=== PATIENT | female | born 1970 | race Caucasian/White ===

== ENCOUNTER → 2016-09-08 | Outpatient (CLI) | payer OTHER ==
--- NOTE | 2016-09-13 07:51 | MM ---
Reason for exam: screening (asymptomatic). Physical Findings: A clinical breast exam by your physician is recommended on an annual basis and results should be correlated with mammographic findings. MG Screening Mammo w CAD Bilateral CC and MLO view(s) were taken. No prior studies available for comparison. The breast tissue is heterogeneously dense. This may lower the sensitivity of mammography. There is no discrete abnormality. ASSESSMENT: Negative, BI-RAD 1 RECOMMENDATION: Routine screening mammogram of both breasts in 1 year.
== END | disposition home or self-care (01) ==
LOC: RADMAMWWP 15:49
PROVIDERS: ATTEND Family Medicine
DX: Z12.31 Encounter for screening mammogram for malignant neoplasm of breast (principal)

== ENCOUNTER → 2017-12-26 | Outpatient (CLI) | payer OTHER ==
--- NOTE | 2017-12-27 14:37 | MM ---
Reason for exam: screening (asymptomatic). Last mammogram was performed 1 year and 4 months ago. Physical Findings: A clinical breast exam by your physician is recommended on an annual basis and results should be correlated with mammographic findings. MG Screening Mammo w CAD Bilateral CC and MLO view(s) were taken. Prior study comparison: September 08, 2016, bilateral MG screening mammo w CAD. The breast tissue is heterogeneously dense. This may lower the sensitivity of mammography. No significant changes when compared with prior studies. ASSESSMENT: Negative, BI-RAD 1 RECOMMENDATION: Routine screening mammogram of both breasts in 1 year.
== END | disposition home or self-care (01) ==
LOC: RADMAMWWP 15:24
PROVIDERS: ATTEND Family Medicine
DX: Z12.31 Encounter for screening mammogram for malignant neoplasm of breast (principal)
CPT/HCPCS: 77067

== ENCOUNTER 2024-04-04 00:25 | Emergency (ER) | payer OTHER ==
[2024-04-04 00:32] VITALS: RESP 18
--- NOTE | 2024-04-04 00:33 | ED ---
Abdominal Pain HPI - General Stated Complaint: Abd pain Time Seen by Provider: 04/04/24 00:30 Source: patient, RN notes reviewed Mode of arrival: ambulatory Limitations: no limitations - History of Present Illness Initial Comments: Patient is a 54 year old female presenting with abdominal pain x 10 hours. She states that the pain is a 10/10 and is "all over". She states that she has not been able to eat or drink today due to the pain. She states that she has been vomiting up "stomach acid". She endorses chills and hot flashes. She denies any hematemesis, diarrhea, shortness of breath. She states that she does not drink alcohol. She states she has not had symptoms yesterday. Patient denies any chest pain or shortness of breath no flank pain. - Related Data Home Medications Medication Instructions Recorded Confirmed Albuterol Sulfate [Albuterol 2 puff PO RT-Q4H PRN 04/05/24 04/05/24 Sulfate Hfa] Cetirizine HCl [Zyrtec] 10 mg PO DAILY 04/05/24 04/05/24 Ergocalciferol (Vitamin D2) 1,250 mcg PO Q7D 04/05/24 04/05/24 [Drisdol (50,000 Iu)] Previous Rx's Medication Instructions Recorded Ondansetron Odt [Zofran Odt] 4 mg PO Q8HR PRN #10 tab 04/04/24 Allergies Allergy/AdvReac Type Severity Reaction Status Date / Time meclizine HCl [From Antivert] Allergy Rash/Hives Verified 04/05/24 10:08 cephalexin [From Keflex] AdvReac "Upset Verified 04/05/24 10:08 stomach" Review of Systems ROS Statement: Those systems with pertinent positive or pertinent negative responses have been documented in the HPI. ROS Other: All systems not noted in ROS Statement are negative. Past Medical History Past Medical History: No Reported History History of Any Multi-Drug Resistant Organisms: None Reported Past Surgical History: Section Additional Past Surgical History / Comment(s): 1996 Past Anesthesia/Blood Transfusion Reactions: No Reported Reaction Past Psychological History: No Psychological Hx Reported Past Alcohol Use History: None Reported Past Drug Use History: None Reported - Past Family History Daughter(s) Family Medical History: Diabetes Mellitus General Exam General appearance: alert, in distress Respiratory exam: Present: normal lung sounds bilaterally. Absent: respiratory distress, wheezes, rales, rhonchi, stridor Cardiovascular Exam: Present: regular rate, normal rhythm, normal heart sounds. Absent: systolic murmur, diastolic murmur, rubs, gallop, clicks GI/Abdominal exam: Present: tenderness (diffuse), guarding Neurological exam: Present: alert, oriented X3, CN II-XII intact Psychiatric exam: Present: anxious Skin exam: Present: warm, dry, intact, normal color, diaphoretic. Absent: rash Course Vital Signs 04/04/24 04/04/24 04/04/24 00:26 02:07 03:56 Temperature 97.8 F 98.2 F Pulse Rate 78 74 75 Respiratory 18 18 18 Rate Blood Pressure 127/90 111/66 106/69 O2 Sat by Pulse 100 99 99 Oximetry Medical Decision Making - Medical Decision Making Was pt. sent in by a medical professional or institution (, PA, PREDATORY ANIMAL EXTERMINATOR, urgent care, hospital, or skilled nursing...) When possible be specific @ -[No] Did you speak to anyone other than the patient for history (EMS, parent, family, police, friend...)? What history was obtained from this source @ -[No] Did you review nursing and triage notes (agree or disagree)? Why? @ -[I reviewed and agree with nursing and triage notes] Were old charts reviewed (outside hosp., previous admission, EMS record, old EKG, old radiological studies, urgent care reports/EKG's, skilled nursing records)? Report findings @ -[No old charts were reviewed] Differential Diagnosis (chest pain, altered mental status, abdominal pain women, abdominal pain men, vaginal bleeding, weakness, fever, dyspnea, syncope, headache, dizziness, GI bleed, back pain, seizure, CVA, palpatations, mental health, musculoskeletal)? @ - differential Abdominal Pain Women: Appendicitis, Cholecystitis, diverticulosis, ischemic bowel, pancreatitis, hepatitis, UTI, gastroenteritis, AAA, incarcerated hernia, bowel obstruction, constipation, inflammatory bowel, hepatitis, peptic ulcer disease, splenic infarction, perforated viscus, vulvitis, ovarian torsion, PID, kidney stone, placenta abruption, this is not meant to be an all-inclusive list EKG interpreted by me (3pts min.). @ -[As above] X-rays interpreted by me (1pt min.). @ -[None done] CT interpreted by me (1pt min.). @ -[None done] U/S interpreted by me (1pt. min.). @ -[None done] What testing was considered but not performed or refused? (CT, X-rays, U/S, labs)? Why? @ -[None] What meds were considered but not given or refused? Why? @ -[None] Did you discuss the management of the patient with other professionals (professionals i.e. , PA, PREDATORY ANIMAL EXTERMINATOR, lab, RT, psych nurse, manager social media, fuel system maintenance worker, t eacher, corporation officer, case management assistant)? Give summary @ -[No] Was smoking cessation discussed for >3mins.? @ -[No] Was critical care preformed (if so, how long)? @ -[No] Were there social determinants of health that impacted care today? How? (Homelessness, low income, unemployed, alcoholism, drug addiction, transportation, low edu. Level, literacy, decrease access to med. care, [facility], rehab)? @ -[No] Was there de-escalation of care discussed even if they declined (Discuss DNR or withdrawal of care, Hospice)? DNR status @ -[No] What co-morbidities impacted this encounter? (DM, HTN, Smoking, COPD, CAD, Cancer, CVA, ARF, Chemo, Hep., AIDS, mental health diagnosis, sleep apnea, morbid obesity)? @ -[None] Was patient admitted / discharged? Hospital course, mention meds given and route, prescriptions, significant lab abnormalities, going to OR and other pertinent info. @ -Discharge laboratory studies reviewed patient has evidence of urinary tract infection. Patient felt improved with IV fluids and antiemetics will be discharged on antibiotics and antiemetics. Return parameters jose luis. Patient in no flank pain afebrile. Undiagnosed new problem with uncertain prognosis? @ -[No] Drug Therapy requiring intensive monitoring for toxicity (Heparin, Nitro, Insulin, Cardizem)? @ -[No] Were any procedures done? @ -[No] Diagnosis/symptom? @ -UTI nausea vomiting Acute, or Chronic, or Acute on Chronic? @ -Acute Uncomplicated (without systemic symptoms) or Complicated (systemic symptoms)? @ -Complicated Side effects of treatment? @ -[No] Exacerbation, Progression, or Severe Exacerbation? @ -[No] Poses a threat to life or bodily function? How? (Chest pain, [place], [place], pneumonia, PE, COPD, DKA, ARF, appy, cholecystitis, CVA, Diverticulitis, Homicidal, Suicidal, threat to staff... and all critical care pts) @ -[No] - Lab Data Result diagrams: 04/04/24 00:40 04/04/24 00:40 Lab Results 04/04/24 04/04/24 04/04/24 Range/Units 00:40 00:40 00:40 WBC 9.5 (3.8-10.6) k/uL RBC 5.13 (3.80-5.40) m/uL Hgb 14.7 (11.4-16.0) gm/dL Hct 44.9 (34.0-46.0) % MCV 87.4 (80.0-100.0) fL MCH 28.7 (25.0-35.0) pg MCHC 32.8 (31.0-37.0) g/dL RDW 12.8 (11.5-15.5) % Plt Count 175 (150-450) k/uL MPV 8.3 Neutrophils % 87 % Lymphocytes % 8 % Monocytes % 4 % Eosinophils % 0 % Basophils % 0 % Neutrophils # 8.3 H (1.3-7.7) k/uL Lymphocytes # 0.8 L (1.0-4.8) k/uL Monocytes # 0.4 (0-1.0) k/uL Eosinophils # 0.0 (0-0.7) k/uL Basophils # 0.0 (0-0.2) k/uL Sodium 142 (137-145) mmol/L Potassium 4.0 (3.5-5.1) mmol/L Chloride 103 (98-107) mmol/L Carbon Dioxide 26 (22-30) mmol/L Anion Gap 13 mmol/L BUN 19 H (7-17) mg/dL Creatinine 0.76 (0.52-1.04) mg/dL Est GFR (CKD-EPI)AfAm >90 (>60 ml/min/1.73 sqM) Est GFR (CKD-EPI)NonAf >90 (>60 ml/min/1.73 sqM) Glucose 151 H (74-99) mg/dL Plasma Lactic Acid Seymour 1.7 (0.7-2.0) mmol/L Calcium 10.4 H (8.4-10.2) mg/dL Total Bilirubin 0.9 (0.2-1.3) mg/dL AST 25 (14-36) U/L ALT 16 (4-34) U/L Alkaline Phosphatase 78 (38-126) U/L Total Protein 8.8 H (6.3-8.2) g/dL Albumin 5.3 H (3.5-5.0) g/dL Lipase 149 (23-300) U/L Urine Color Urine Appearance (Clear) Urine pH (5.0-8.0) Ur Specific [place] (1.001-1.035) Urine Protein (Negative) Urine Glucose (UA) (Negative) Urine Ketones (Negative) Urine Blood (Negative) Urine Nitrite (Negative) Urine Bilirubin (Negative) Urine Urobilinogen (<2.0) mg/dL Ur Leukocyte Esterase (Negative) Urine RBC (0-5) /hpf Urine WBC (0-5) /hpf Urine WBC Clumps (None) /hpf Ur Squamous Epith Cells (0-4) /hpf Urine Mucus (None) /hpf Urine Yeast (Budding) (None) /hpf 04/04/24 Range/Units 02:20 WBC (3.8-10.6) k/uL RBC (3.80-5.40) m/uL Hgb (11.4-16.0) gm/dL Hct (34.0-46.0) % MCV (80.0-100.0) fL MCH (25.0-35.0) pg MCHC (31.0-37.0) g/dL RDW (11.5-15.5) % Plt Count (150-450) k/uL MPV Neutrophils % % Lymphocytes % % Monocytes % % Eosinophils % % Basophils % % Neutrophils # (1.3-7.7) k/uL Lymphocytes # (1.0-4.8) k/uL Monocytes # (0-1.0) k/uL Eosinophils # (0-0.7) k/uL Basophils # (0-0.2) k/uL Sodium (137-145) mmol/L Potassium (3.5-5.1) mmol/L Chloride (98-107) mmol/L Carbon Dioxide (22-30) mmol/L Anion Gap mmol/L BUN (7-17) mg/dL Creatinine (0.52-1.04) mg/dL Est GFR (CKD-EPI)AfAm (>60 ml/min/1.73 sqM) Est GFR (CKD-EPI)NonAf (>60 ml/min/1.73 sqM) Glucose (74-99) mg/dL Plasma Lactic Acid Seymour (0.7-2.0) mmol/L Calcium (8.4-10.2) mg/dL Total Bilirubin (0.2-1.3) mg/dL AST (14-36) U/L ALT (4-34) U/L Alkaline Phosphatase (38-126) U/L Total Protein (6.3-8.2) g/dL Albumin (3.5-5.0) g/dL Lipase (23-300) U/L Urine Color Yellow Urine Appearance Cloudy H (Clear) Urine pH 8.5 H (5.0-8.0) Ur Specific [place] 1.028 (1.001-1.035) Urine Protein 2+ H (Negative) Urine Glucose (UA) Negative (Negative) Urine Ketones 4+ H (Negative) Urine Blood Trace H (Negative) Urine Nitrite Negative (Negative) Urine Bilirubin Negative (Negative) Urine Urobilinogen 2.0 (<2.0) mg/dL Ur Leukocyte Esterase Large H (Negative) Urine RBC 32 H (0-5) /hpf Urine WBC 165 H (0-5) /hpf Urine WBC Clumps Rare H (None) /hpf Ur Squamous Epith Cells 1 (0-4) /hpf Urine Mucus Moderate H (None) /hpf Urine Yeast (Budding) Occasional H (None) /hpf - EKG Data -: EKG Interpreted by Me EKG Comments: EKG performed at 00: 40 sinus rhythm rate of 81 IN 125 QRS 93 QT/QTc 369/406 Disposition Clinical Impression: UTI (urinary tract infection), Dehydration, Nausea & vomiting Disposition: HOME SELF-CARE Condition: Stable Instructions (If sedation given, give patient instructions): Urinary Tract Infection in Women (ED) Additional Instructions: Please return to the Emergency Department if symptoms worsen or any other concerns. Prescriptions: Ondansetron Odt [Zofran Odt] 4 mg PO Q8HR PRN #10 tab PRN Reason: Nausea Is patient prescribed a controlled substance at d/c from ED?: No Referrals: Clifton Rios MD [STAFF PHYSICIAN] - 1-2 days Time of Disposition: 03:11
[2024-04-04] MEDS: SODIUM CHLORIDE 0.9% 1,000 ML IV STA (00:57)
[2024-04-04] MEDS: KETOROLAC 15 MG/ML 1 ML VIAL IVP STA (00:59)
[2024-04-04] MEDS: ONDANSETRON 4 MG/2 ML VIAL IVP STA (00:59)
[2024-04-04 01:06] LABS: Basophils % (A) 0 %; Eosinophils % (A) 0 %; HCT 44.9 % (34.0-46.0); HGB 14.7 gm/dL (11.4-16.0); Lymphocytes # (A) 0.8 k/uL (1.0-4.8); Lymphocytes % (A) 8 %; MCH 28.7 pg (25.0-35.0); MCHC 32.8 g/dL (31.0-37.0); MCV 87.4 fL (80.0-100.0); Mean Platelet Volume 8.3; Monocytes # (A) 0.4 k/uL (0-1.0); Monocytes % (A) 4 %; Neutrophils # (A) 8.3 k/uL (1.3-7.7); Neutrophils % (A) 87 %; Platelet Count 175 k/uL (150-450); RBC 5.13 m/uL (3.80-5.40); RDW 12.8 % (11.5-15.5); WBC 9.5 k/uL (3.8-10.6)
[2024-04-04] MEDS: diphenhydrAMINE 50 MG/ML 1 ML VIAL IVP STA (01:29)
[2024-04-04] MEDS: METOCLOPRAMIDE 5 MG/ML 2 ML VIAL IVP STA (01:29)
[2024-04-04 01:48] LABS: ALT 16 U/L (4-34); AST 25 U/L (14-36); African American GFR (CKD) >90 (>60 ml/min/1.73 sqM); Albumin 5.3 g/dL (3.5-5.0); Alkaline Phosphatase 78 U/L (38-126); Anion Gap 13 mmol/L; Blood Urea Nitrogen 19 mg/dL (7-17); Calcium 10.4 mg/dL (8.4-10.2); Carbon Dioxide 26 mmol/L (22-30); Chloride 103 mmol/L (98-107); Glucose 151 mg/dL (74-99); Lipase 149 U/L (23-300); Non-African American GFR(CKD) >90 (>60 ml/min/1.73 sqM); Sodium 142 mmol/L (137-145); Total Bilirubin 0.9 mg/dL (0.2-1.3); Total Protein 8.8 g/dL (6.3-8.2)
[2024-04-04 02:53] LABS: Appearance,Urine Cloudy (Clear); Bilirubin,Urine Negative (Negative); Blood,Urine Trace (Negative); Budding Yeast,Urine Occasional /hpf; Color,Urine Yellow; Glucose,Urine (UA) Negative (Negative); Ketones,Urine 4+ (Negative); Leukocyte Esterase,Urine Large (Negative); Mucus,Urine Moderate /hpf; Nitrite,Urine Negative (Negative); PH, Urine 8.5 (5.0-8.0); Protein,Urine 2+ (Negative); RBC,Urine 32 /hpf (0-5); Specific Gravity,Urine 1.028 (1.001-1.035); Squamous Epithelial Cell,Urine 1 /hpf (0-4); WBC,Urine 165 /hpf (0-5)
[2024-04-04] MEDS: SODIUM CHLORIDE 0.9% 1,000 ML IV ONE (03:30)
[2024-04-04 03:56] VITALS: BP 106/69; PULSE 75; TEMP 98.2
== END 2024-04-04 03:45 | disposition home or self-care (01) ==
LOC: EC 00:25
DX: N39.0 Urinary tract infection, site not specified (principal); E86.0 Dehydration; R11.2 Nausea with vomiting, unspecified; Z88.1 Allergy status to other antibiotic agents; Z88.8 Allergy status to other drugs, medicaments and biological substances
CPT/HCPCS: 36415; 93005; 80053; 83605; 83690; 85025; 81001; 99285; 96375; 96361; 96365; J1200; J2765; J2405; J0696; J1885

== ENCOUNTER 2024-04-05 05:49 | Inpatient (IN) | payer OTHER ==
[2024-04-05 06:16] LABS: Basophils % (A) 0 %; Eosinophils % (A) 1 %; HCT 42.1 % (34.0-46.0); HGB 13.6 gm/dL (11.4-16.0); Lymphocytes # (A) 0.9 k/uL (1.0-4.8); Lymphocytes % (A) 13 %; MCH 28.4 pg (25.0-35.0); MCHC 32.3 g/dL (31.0-37.0); MCV 87.9 fL (80.0-100.0); Mean Platelet Volume 8.2; Monocytes # (A) 0.3 k/uL (0-1.0); Monocytes % (A) 5 %; Neutrophils # (A) 5.6 k/uL (1.3-7.7); Neutrophils % (A) 81 %; Platelet Count 168 k/uL (150-450); RBC 4.79 m/uL (3.80-5.40); RDW 12.8 % (11.5-15.5)
[2024-04-05] MEDS: KETOROLAC 15 MG/ML 1 ML VIAL IVP STA (06:16)
[2024-04-05] MEDS: ONDANSETRON 4 MG/2 ML VIAL IVP STA (06:17)
[2024-04-05] MEDS: SODIUM CHLORIDE 0.9% 1,000 ML IV STA (06:18)
--- NOTE | 2024-04-05 06:18 | ED ---
Abdominal Pain HPI - General Chief Complaint: Abdominal Pain Stated Complaint: NV Time Seen by Provider: 04/05/24 05:57 Source: patient, EMS, RN notes reviewed Mode of arrival: EMS Limitations: no limitations - History of Present Illness Initial Comments: This is a 54-year-old female who presents to the emergency department for abdominal pain, nausea, and vomiting. Patient was evaluated here yesterday for the same symptoms, which had started about 10 hours prior. They were able to control her symptoms while she was here and she was diagnosed with a UTI. States that after going home the symptoms have returned and they have gotten progressively worse since then. The pain then woke her up around 3am today. States that the pain is throughout her whole abdomen, but may be worse in the lower portions. She has also had persistent nausea and vomiting. Because of that she has also been unable to keep down her antibiotics. Denies any history of similar pain in the past. Also denies any diarrhea or constipation. Her last bowel movement was yesterday. She is still passing gas. MD Complaint: abdominal pain - Related Data Home Medications Medication Instructions Recorded Confirmed Albuterol Sulfate [Albuterol 2 puff PO RT-Q4H PRN 04/05/24 04/05/24 Sulfate Hfa] Cetirizine HCl [Zyrtec] 10 mg PO DAILY 04/05/24 04/05/24 Ergocalciferol (Vitamin D2) 1,250 mcg PO Q7D 04/05/24 04/05/24 [Drisdol (50,000 Iu)] Previous Rx's Medication Instructions Recorded Ondansetron Odt [Zofran Odt] 4 mg PO Q8HR PRN #10 tab 04/04/24 Allergies Allergy/AdvReac Type Severity Reaction Status Date / Time meclizine HCl [From Antivert] Allergy Rash/Hives Verified 04/05/24 10:08 cephalexin [From Keflex] AdvReac "Upset Verified 04/05/24 10:08 stomach" Review of Systems ROS Statement: Those systems with pertinent positive or pertinent negative responses have been documented in the HPI. ROS Other: All systems not noted in ROS Statement are negative. Past Medical History Past Medical History: No Reported History History of Any Multi-Drug Resistant Organisms: None Reported Past Surgical History: Section Additional Past Surgical History / Comment(s): 1996 Past Anesthesia/Blood Transfusion Reactions: No Reported Reaction Past Psychological History: No Psychological Hx Reported Past Alcohol Use History: None Reported Past Drug Use History: None Reported - Past Family History Daughter(s) Family Medical History: Diabetes Mellitus General Exam Limitations: no limitations General appearance: alert, in distress Head exam: Present: atraumatic, normocephalic, normal inspection Respiratory exam: Present: normal lung sounds bilaterally. Absent: respiratory distress, wheezes, rales, rhonchi, stridor Cardiovascular Exam: Present: regular rate, normal rhythm, normal heart sounds. Absent: systolic murmur, diastolic murmur, rubs, gallop, clicks GI/Abdominal exam: Present: soft, tenderness (RLQ and LLQ), normal bowel sounds. Absent: distended Neurological exam: Present: alert, oriented X3, CN II-XII intact Psychiatric exam: Present: normal affect, normal mood Skin exam: Present: warm, dry, intact, normal color. Absent: rash Course Vital Signs 04/05/24 04/05/24 04/05/24 05:51 07:44 08:42 Temperature 98.0 F Pulse Rate 98 86 89 Respiratory 20 20 20 Rate Blood Pressure 126/86 113/69 133/86 O2 Sat by Pulse 100 97 94 L Oximetry 04/05/24 04/05/24 04/05/24 10:00 12:21 16:00 Temperature 97.9 F Pulse Rate 83 73 74 Respiratory 20 18 16 Rate Blood Pressure 114/78 119/87 111/70 O2 Sat by Pulse 96 99 97 Oximetry 04/05/24 17:18 Temperature 98.0 F Pulse Rate 71 Respiratory 16 Rate Blood Pressure 123/80 O2 Sat by Pulse 97 Oximetry Medical Decision Making - Medical Decision Making This is a 54 year old female who presents to the emergency department for abdominal pain, nausea, and vomiting. Was pt. sent in by a medical professional or institution? @ -No Did you speak to anyone other than the patient for history? @ -No Did you review nursing and triage notes? @ -Yes, and I agree, it is accurate with regards to the patient's symptoms. Were old charts reviewed? @ -No Differential Diagnosis? @ -Differential Abdominal Pain Women: Appendicitis, Cholecystitis, diverticulosis, ischemic bowel, pancreatitis, hepatitis, UTI, gastroenteritis, AAA, incarcerated hernia, bowel obstruction, constipation, inflammatory bowel, hepatitis, peptic ulcer disease, splenic infarction, perforated viscus, vulvitis, ovarian torsion, PID, kidney stone, placenta abruption, this is not meant to be an all-inclusive list EKG interpreted by me (3pts min.)? @ -EKG interpreted by me demonstrating the following: Sinus rhythm. Ventricular rate 82 bpm, VT interval 123 ms, QRS duration 86 ms, QTc 396 ms. X-rays interpreted by me (1pt min.)? @ -Chest x-ray obtained. My interpretation identifies successful placement of the NG tube. CT interpreted by me (1pt min.)? @ -CT scan of the abdomen and pelvis obtained. My interpretation identifies di lated fluid-filled small bowel loops. U/S interpreted by me (1pt. min.)? @ -Not obtained What testing was considered but not performed? (CT, X-rays, U/S, labs)? Why? @ -None What meds were considered but not given? Why? @ -None Did you discuss the management of the patient with other professionals? @ -Yes, Dr. Peguero, general surgery, who advised admission with IV antibiotics. Did you reconcile home meds? @ -Yes Was smoking cessation discussed for >3mins.? @ -No Was critical care preformed (if so, how long)? @ -No Were there social determinants of health that impacted care today? How? (Homelessness, low income, unemployed, alcoholism, drug addiction, transportation, low edu. Level, literacy, decrease access to med. care, penitentiary, rehab)? @ -No Was there de-escalation of care discussed even if they declined? (Discuss DNR or withdrawal of care, Hospice)? @ -No What co-morbidities impacted this encounter? (DM, HTN, Smoking, COPD, CAD, Cancer, CVA, Hep., AIDS, mental health diagnosis, sleep apnea, morbid obesity)? @ -None Was patient admitted / discharged? @ -Admitted. Lab work unremarkable. CT scan of the abdomen and pelvis demonstrates findings highly suggestive of small bowel obstruction based on d ilated fluid-filled small bowel loops measuring up to 3.4 cm. However, discrete transition point is difficult to identify. This is possibly in the left lower quadrant. They also advised correlation for concurrent infectious or inflammatory colitis with moderate inflammation. She also has mesenteric edema and mild abdominopelvic ascites likely reactive to these changes. NG tube was placed and hooked up to intermittent low wall suction. Chest x-ray verified placement of the NG tube as well. Case discussed with Dr. Peguero, general surgery. He advised IV antibiotics with Zosyn and Flagyl. These were subsequently initiated. She was also started on maintenance IV fluids and kept NPO. Medicine consulted for medical management. Case discussed with ED attending Dr. Green. Undiagnosed new problem with uncertain prognosis? @ -None Drug Therapy requiring intensive monitoring for toxicity (Heparin, Nitro, Insulin, Cardizem)? @ -None Were any procedures done? @ -None Diagnosis/symptom? @ -Small bowel obstruction, colitis Acute, or Chronic, or Acute on Chronic? @ -Acute Uncomplicated (without systemic symptoms) or Complicated (systemic symptoms)? @ -Complicated Side effects of treatment? @ -None Exacerbation, Progression, or Severe Exacerbation] @ -Not applicable Poses a threat to life or bodily function? @ -Yes, can lead to life-threatening infection. - Lab Data Result diagrams: 04/08/24 04:22 04/08/24 04:22 Lab Results 04/05/24 04/05/24 04/05/24 Range/Units 05:53 05:53 05:53 WBC 7.0 (3.8-10.6) k/uL RBC 4.79 (3.80-5.40) m/uL Hgb 13.6 (11.4-16.0) gm/dL Hct 42.1 (34.0-46.0) % MCV 87.9 (80.0-100.0) fL MCH 28.4 (25.0-35.0) pg MCHC 32.3 (31.0-37.0) g/dL RDW 12.8 (11.5-15.5) % Plt Count 168 (150-450) k/uL MPV 8.2 Neutrophils % 81 % Lymphocytes % 13 % Monocytes % 5 % Eosinophils % 1 % Basophils % 0 % Neutrophils # 5.6 (1.3-7.7) k/uL Lymphocytes # 0.9 L (1.0-4.8) k/uL Monocytes # 0.3 (0-1.0) k/uL Eosinophils # 0.0 (0-0.7) k/uL Basophils # 0.0 (0-0.2) k/uL ESR (0-30) mm/Hr Sodium 145 (137-145) mmol/L Potassium 3.9 (3.5-5.1) mmol/L Chloride 107 (98-107) mmol/L Carbon Dioxide 27 (22-30) mmol/L Anion Gap 11 mmol/L BUN 15 (7-17) mg/dL Creatinine 0.77 (0.52-1.04) mg/dL Est GFR (CKD-EPI)AfAm >90 (>60 ml/min/1.73 sqM) Est GFR (CKD-EPI)NonAf 88 (>60 ml/min/1.73 sqM) Glucose 135 H (74-99) mg/dL Plasma Lactic Acid Seymour 1.1 (0.7-2.0) mmol/L Calcium 9.5 (8.4-10.2) mg/dL Total Bilirubin 0.7 (0.2-1.3) mg/dL AST 21 (14-36) U/L ALT 13 (4-34) U/L Alkaline Phosphatase 57 (38-126) U/L C-Reactive Protein (<1.0) mg/dL Total Protein 7.4 (6.3-8.2) g/dL Albumin 4.6 (3.5-5.0) g/dL Amylase 51 (30-110) U/L Lipase 119 (23-300) U/L 04/05/24 04/05/24 Range/Units 05:53 05:53 WBC (3.8-10.6) k/uL RBC (3.80-5.40) m/uL Hgb (11.4-16.0) gm/dL Hct (34.0-46.0) % MCV (80.0-100.0) fL MCH (25.0-35.0) pg MCHC (31.0-37.0) g/dL RDW (11.5-15.5) % Plt Count (150-450) k/uL MPV Neutrophils % % Lymphocytes % % Monocytes % % Eosinophils % % Basophils % % Neutrophils # (1.3-7.7) k/uL Lymphocytes # (1.0-4.8) k/uL Monocytes # (0-1.0) k/uL Eosinophils # (0-0.7) k/uL Basophils # (0-0.2) k/uL ESR 21 (0-30) mm/Hr Sodium (137-145) mmol/L Potassium (3.5-5.1) mmol/L Chloride (98-107) mmol/L Carbon Dioxide (22-30) mmol/L Anion Gap mmol/L BUN (7-17) mg/dL Creatinine (0.52-1.04) mg/dL Est GFR (CKD-EPI)AfAm (>60 ml/min/1.73 sqM) Est GFR (CKD-EPI)NonAf (>60 ml/min/1.73 sqM) Glucose (74-99) mg/dL Plasma Lactic Acid Seym[place] (0.7-2.0) mmol/L Calcium (8.4-10.2) mg/dL Total Bilirubin (0.2-1.3) mg/dL AST (14-36) U/L ALT (4-34) U/L Alkaline Phosphatase (38-126) U/L C-Reactive Protein <0.5 (<1.0) mg/dL Total Protein (6.3-8.2) g/dL Albumin (3.5-5.0) g/dL Amylase (30-110) U/L Lipase (23-300) U/L - Radiology Data Radiology results: report reviewed, image reviewed Disposition Clinical Impression: Small bowel obstruction, Colitis Disposition: ADMITTED IP TO THIS HOSP
[2024-04-05] MEDS: MORPHINE SULFATE 4 MG/ML SYRINGE IVP STA (06:19)
[2024-04-05 06:21] LABS: ALT 13 U/L (4-34); AST 21 U/L (14-36); African American GFR (CKD) >90 (>60 ml/min/1.73 sqM); Albumin 4.6 g/dL (3.5-5.0); Alkaline Phosphatase 57 U/L (38-126); Amylase 51 U/L (30-110); Anion Gap 11 mmol/L; Blood Urea Nitrogen 15 mg/dL (7-17); Calcium 9.5 mg/dL (8.4-10.2); Carbon Dioxide 27 mmol/L (22-30); Chloride 107 mmol/L (98-107); Glucose 135 mg/dL (74-99); Lipase 119 U/L (23-300); Non-African American GFR(CKD) 88 (>60 ml/min/1.73 sqM); Potassium 3.9 mmol/L (3.5-5.1); Sodium 145 mmol/L (137-145); Total Bilirubin 0.7 mg/dL (0.2-1.3); Total Protein 7.4 g/dL (6.3-8.2)
[2024-04-05] MEDS: PANTOPRAZOLE 40 MG/10 ML VIAL IVP STA (06:21)
[2024-04-05] MEDS: HYDROmorphone 1 MG/ML 1 ML SYRINGE IVP STA (06:52)
[2024-04-05] MEDS: DICYCLOMINE 10 MG/ML 2 ML AMP IM STA (06:59)
--- NOTE | 2024-04-05 07:38 | CT ---
EXAMINATION TYPE: CT abdomen pelvis w con DATE OF EXAM: 04/05/2024 6:49 AM COMPARISON: None. CLINICAL INDICATION: Female, 54 years old with history of Lower abdominal pain, pain and nausea, TECHNIQUE: Contiguous axial scanning of the abdomen and pelvis following administration of 100 ml Iso rebecca 300 IV contrast. Delayed images through the kidneys and coronal/sagittal reconstructions perform ed. CT DLP: 569.2 mGycm, Automated exposure control for dose reduction was used. FINDINGS: The heart is normal size without pericardial effusion. Lung bases clear without pleural effusion. There is trace perihepatic ascites and mild to moderate pelvic ascites fluid. Scattered mesenteric ed melvin. There is collapse of distal small bowel loops. Most of the colon is collapsed. Colon shows mild to moderate circumferential wall thickening especially at the hepatic flexure where there is mild per icolonic fat stranding as well, axial image [id number]. Dilated loop filled small bowel loops measuring up to 3.4 cm in caliber. Overall findings favor small bowel obstruction though the discrete transition point is difficult to clearly identify, possibly on coronal image 26 in the left lower quadrant. Scattered nonenlarged and borderline sized mesenteric lymph nodes. Incidental 1.4 cm hemangioma posterior right hepatic dome. Otherwise, no focal liver lesion. Portal v enous system is patent. No biliary ductal dilatation. 1.1 cm gallstone. Junctional fold in the gallbl adder. No free air. Adrenal glands, left kidney, spleen, and pancreas within normal limits. 4 mm nonobstructing right bisi al stone and extrarenal pelvis right kidney. Bladder under distended. Uterus anteverted with IUD demonstrated. Both ovaries are visualized. No pel tammi adenopathy seen. Bones: Moderate to severe degenerative disc disease L5-S1. Hypertrophic facet arthropathy lower lumba r spine. Combination of disc bulge and ligamentum flavum thickening at L4-L5 may contribute to severe focal spinal canal stenosis. IMPRESSION: 1. FINDINGS HIGHLY SUGGESTIVE OF SMALL BOWEL OBSTRUCTION, TRANSITION POINT NOT CLEARLY SEEN, POSSIBLY LEFT LOWER QUADRANT, CORONAL IMAGE 26. SMALL BOWEL LOOPS DILATED UP TO 3.4 CM. 2. CORRELATE FOR A CONCURRENT INFECTIOUS OR INFLAMMATORY COLITIS WITH MODERATE INFLAMMATION. 3. MESENTERIC EDEMA AND MILD ABDOMINOPELVIC ASCITES LIKELY REACTIVE TO THESE CHANGES. 4. INCIDENTAL 4 MM NONOBSTRUCTIVE RENAL STONE AND A 1.1 CM GALLSTONE. IUD NOTED. [facility], Workstation: Photos [id number], 04/05/2024 7:36 AM
[2024-04-05] MEDS ORDERED: NALOXONE 0.4 MG/ML 1 ML VIAL IV PRN (08:01)
[2024-04-05] MEDS: LORazepam 2 MG/ML INJ IV STA (08:27)
[2024-04-05] MEDS: SODIUM CHLORIDE 0.9% 1,000 ML IV SCH (08:27)
[2024-04-05] MEDS: PANTOPRAZOLE 40 MG/10 ML VIAL IV SCH (08:28)
[2024-04-05] MEDS: PIPERACILLIN-TAZOBACTAM 3.375 GM in SODIUM CHLORIDE 0.9% 100 ML IVPB SCH (08:39)
[2024-04-05] MEDS: metroNIDAZOLE-NS PMX 500 MG in SALINE 1 100ML.BAG IVPB SCH (08:40)
--- NOTE | 2024-04-05 08:47 | XR ---
EXAMINATION TYPE: XR chest 1V confirm line [facility] DATE OF EXAM: 04/05/2024 8:42 AM COMPARISON: None. CLINICAL INDICATION: Female, 54 years old with history of NG tube, TECHNIQUE: Single frontal upright view of the chest is obtained. FINDINGS: Nasogastric tube is seen extending below the diaphragm. Lungs are clear. Cardiac silhouette size appears within normal limits. Osseous structures are intact. Contrast excretion from recent CT is seen in bilateral collecting systems with asymmetric mild right-sided hydronephrosis. IMPRESSION: Successful placement of a nasogastric tube. [facility], , 04/05/2024 8:45 AM
[2024-04-05] MEDS ORDERED: ONDANSETRON ODT 4 MG TAB PO PRN (10:14)
--- NOTE | 2024-04-05 11:57 | P.GSHP ---
History of Present Illness H&P Date: 04/05/24 CHIEF COMPLAINT: Abdominal pain HISTORY OF PRESENT ILLNESS: This is a 54-year-old female who presented with abdominal pain and nausea and vomiting x 2 days. Patient reports that she was having formed stools at home and having flatus. She denies any prior history of bowel obstruction. Surgical history includes a . She has never had colonoscopy before. CT scan abdomen pelvis completed reported findings highly suggestive of small bowel obstruction. Transition point not clearly seen, possibly left lower quadrant. Correlate for concurrent infectious or inflammatory colitis with moderate inflammation. Patient denies any diarrhea. Denies any blood in her stools. Denies any history of colitis. Patient has NG tube in place. She does report some improvement in her pain and nausea since NG tube placed and has received pain medication. PAST MEDICAL HISTORY: See below PAST SURGICAL HISTORY: See below MEDICATIONS: See below ALLERGIES: See below SOCIAL HISTORY: No illicit drug use. REVIEW OF SYSTEMS: CONSTITUTIONAL: Denies fever or chills. HEENT: Denies blurred vision, vision changes, or eye pain. Denies hemoptysis CARDIOVASCULAR: Denies chest pain or pressure. RESPIRATORY: No shortness of breath. GASTROINTESTINAL: See HPI for pertinent findings HEMATOLOGIC: Denies bleeding disorders. GENITOURINARY: Denies any blood in urine or increased urinary frequency. SKIN: Denies pruitis. Denies rash. PHYSICAL EXAM: VITAL SIGNS: Reviewed GENERAL: Well-developed in no acute distress. HEENT: No sclera icterus. Extraocular movements grossly intact. Moist buccal mucosa. Head is atraumatic, normocephalic. No nasal drainage. ABDOMEN: Soft. Mildly distended. Currently nontender on exam. The patient had received pain medication. Umbilical hernia reducible and nontender. NEUROLOGIC: Alert and oriented. Cranial nerves II through XII grossly intact. LABORATORY DATA: WBC 7.0 Hgb 13.6 platelets 168 Sodium 145 potassium 3.9 creatinine 0.77 Lactic acid 1.1 LFTs normal IMAGING: CT scan abdomen pelvis reports finding highly suggestive of small bowel obs truction, transition point not clearly seen, possible left lower quadrant. Small bowel loops dilated up to 3.4 cm. Correlate for concurrent infectious or inflammatory colitis with moderate inflammation. Mesenteric edema and mild abdominal pelvic ascites likely reactive to these changes. Incidental 4 mm nonobstructive renal stone and a 1.1 cm gallstone ASSESSMENT: 1. Partial small bowel obstruction with possible transition point left lower quadrant not clearly visible noted on CT 2. Colitis. CT scan reports possible concurrent infectious or inflammatory colitis with moderate inflammation PLAN: -Continue NG tube for decompression -Keep patient n.p.o. -Continue IV fluid -Continue pain management -Continue antibiotics -GI prophylaxis Protonix and DVT prophylaxis subcu heparin Physician Control Integration Engineer note has been reviewed by physician. Signing provider agrees with the documented findings, assessment, and plan of care. I have personally seen and examined the patient, reviewed the JUNIOR ELECTRICAL ENGINEER /PAs history, exam and MDM and agree with the assessment and plan as written. Based on total visit time, I have performed more than 50% of the visit. As above: Patient presents with abdominal pain nausea and vomiting. Nasogastric tube was placed by ER. CAT scan reviewed and shows inflammatory changes of both small bowel and colon. Proximal small bowel dilation consistent with partial obstruction. No family history of inflammatory bowel disease. Patient has not had a colonoscopy previously. Patient has had normal bowel habits throughout her life without any significant abdominal issues. Etiology unclear. No definite sick contacts. Presentation could be on the basis of infectious e nterocolitis. Check stool cultures if patient has loose stools. Additionally etiology could be related to exacerbation of underlying undiagnosed inflammatory bowel disease. Continue conservative management for now with gastric decompression and bowel rest. Repeat abdominal x-rays tomorrow. Repeat labs tomorrow. Empiric antibiotics. Past Medical History Past Medical History: No Reported History History of Any Multi-Drug Resistant Organisms: None Reported Past Surgical History: Section Additional Past Surgical History / Comment(s): 1996 Past Anesthesia/Blood Transfusion Reactions: No Reported Reaction Past Psychological History: No Psychological Hx Reported Past Alcohol Use History: None Reported Past Drug Use History: None Reported - Past Family History Daughter(s) Family Medical History: Diabetes Mellitus Medications and Allergies Home Medications Medication Instructions Recorded Confirmed Type Ondansetron Odt [Zofran Odt] 4 mg PO Q8HR PRN #10 tab 04/04/24 04/05/24 Rx Albuterol Sulfate [Albuterol 2 puff PO RT-Q4H PRN 04/05/24 04/05/24 History Sulfate Hfa] Cetirizine HCl [Zyrtec] 10 mg PO DAILY 04/05/24 04/05/24 History Ergocalciferol (Vitamin D2) 1,250 mcg PO Q7D 04/05/24 04/05/24 History [Drisdol (50,000 Iu)] Allergies Allergy/AdvReac Type Severity Reaction Status Date / Time meclizine HCl [From Antivert] Allergy Rash/Hives Verified 04/05/24 10:08 cephalexin [From Keflex] AdvReac "Upset Verified 04/05/24 10:08 stomach" Surgical - Exam Vital Signs Temp Pulse Resp BP Pulse Ox 98.0 F 98 20 126/86 100 04/05/24 05:51 04/05/24 05:51 04/05/24 05:51 04/05/24 05:51 04/05/24 05:51 Results - Labs 04/05/24 05:53 04/05/24 05:53 Abnormal Lab Results - Last 24 Hours (Table) 04/05/24 04/05/24 Range/Units 05:53 05:53 Lymphocytes # 0.9 L (1.0-4.8) k/uL Glucose 135 H (74-99) mg/dL Diabetes panel 04/05/24 Range/Units 05:53 Sodium 145 (137-145) mmol/L Potassium 3.9 (3.5-5.1) mmol/L Chloride 107 (98-107) mmol/L Carbon Dioxide 27 (22-30) mmol/L BUN 15 (7-17) mg/dL Creatinine 0.77 (0.52-1.04) mg/dL Glucose 135 H (74-99) mg/dL Calcium 9.5 (8.4-10.2) mg/dL AST 21 (14-36) U/L ALT 13 (4-34) U/L Alkaline Phosphatase 57 (38-126) U/L Total Protein 7.4 (6.3-8.2) g/dL Albumin 4.6 (3.5-5.0) g/dL Calcium panel 04/05/24 Range/Units 05:53 Calcium 9.5 (8.4-10.2) mg/dL Albumin 4.6 (3.5-5.0) g/dL Pituitary panel 04/05/24 Range/Units 05:53 Sodium 145 (137-145) mmol/L Potassium 3.9 (3.5-5.1) mmol/L Chloride 107 (98-107) mmol/L Carbon Dioxide 27 (22-30) mmol/L BUN 15 (7-17) mg/dL Creatinine 0.77 (0.52-1.04) mg/dL Glucose 135 H (74-99) mg/dL Calcium 9.5 (8.4-10.2) mg/dL Adrenal panel 04/05/24 Range/Units 05:53 Sodium 145 (137-145) mmol/L Potassium 3.9 (3.5-5.1) mmol/L Chloride 107 (98-107) mmol/L Carbon Dioxide 27 (22-30) mmol/L BUN 15 (7-17) mg/dL Creatinine 0.77 (0.52-1.04) mg/dL Glucose 135 H (74-99) mg/dL Calcium 9.5 (8.4-10.2) mg/dL Total Bilirubin 0.7 (0.2-1.3) mg/dL AST 21 (14-36) U/L ALT 13 (4-34) U/L Alkaline Phosphatase 57 (38-126) U/L Total Protein 7.4 (6.3-8.2) g/dL Albumin 4.6 (3.5-5.0) g/dL
[2024-04-05] MEDS: HYDROmorphone 0.5 MG/0.5 ML SYRINGE IVP PRN (13:54)
[2024-04-05] MEDS: LIDOCAINE VISCOUS 2% 15 ML CUP MUCOUS MEM ONE (14:28)
[2024-04-05 15:23] LABS: Appearance,Urine Clear (Clear); Bilirubin,Urine Negative (Negative); Blood,Urine Small (Negative); Color,Urine Light Yellow; Glucose,Urine (UA) Negative (Negative); Ketones,Urine 2+ (Negative); Leukocyte Esterase,Urine Large (Negative); Mucus,Urine Rare /hpf; Nitrite,Urine Negative (Negative); Protein,Urine Trace (Negative); RBC,Urine 31 /hpf (0-5); Squamous Epithelial Cell,Urine 3 /hpf (0-4); Urobilinogen,Urine <2.0 mg/dL (<2.0); WBC,Urine 59 /hpf (0-5)
[2024-04-05 15:24] LABS: Specific Gravity,Urine >1.050 (1.001-1.035)
--- NOTE | 2024-04-05 15:45 | P.CONS ---
History of Present Illness - Reason for Consult Consult date: 04/05/24 - Chief Complaint medical management - History of Present Illness 54-year-old woman with a medical history of asthma presenting for evaluation of abdominal pain. Patient says that she started to experience central abdominal pain with associated nausea and vomiting for approximately 2 days. The emesis is nonbloody nonbilious. She has had normal bowel movements, describing her last bowel movement was yesterday, soft, brown. She also reports associated chills, subjective fevers. Otherwise, she denies chest pain, palpitations, presyncope, syncope, numbness/weakness of extremities. In the emergency room, patient was afebrile, 126/86, heart rate 98, 100% on room air. CBC is unremarkable. Comprehensive metabolic panel is unremarkable. Lipase was 119. Urinalysis shows high specific gravity of 1.05, trace protein, 2+ ketones, small amount of blood, large leukocyte esterase, 31 red blood cells, [address] of the abdomen/pelvis shows small bowel obstruction, infectious versus inflammatory colitis, mesenteric edema, incidental renal stone. The patient was admitted to the surgical service for small bowel obstruction and medicine was consulted for management of colitis. All Systems reviewed and pertinent positives and negatives noted in HPI, all other symptoms are negative Gen: In NAD, non-toxic HEENT: normocephalic, atraumatic, hearing acuity is intant, mucous membranes moist CVS: perfusing all extremities well, no pitting edema, Respiratory: symmetric chest expansion, no accessory muscle use, GI: soft, diffusely tender to palpation, distended : no suprapubic tenderness, no CVA tenderness MSK/Derm: no rashes, cyanosis Neuro: CN II-XII intact, no motor weakness, Psych: cooperative, euthymic mood, judgment and insight is intact Labs and imaging as above Assessment/plan: Small bowel obstruction Infectious/inflammatory colitis -Admit to inpatient with telemetry -Agree with NG tube, management per surgery -Agree with antibiotics, Zosyn, Flagyl -ESR, CRP -Patient will likely need colonoscopy once infectious colitis is ruled out -Stool culture if having loose bowel movements Pt is Full Code DVT PPx: heparin 5000U q12h Past Medical History Past Medical History: No Reported History History of Any Multi-Drug Resistant Organisms: None Reported Past Surgical History: Section Additional Past Surgical History / Comment(s): 1996 Past Anesthesia/Blood Transfusion Reactions: No Reported Reaction Past Psychological History: No Psychological Hx Reported Past Alcohol Use History: None Reported Past Drug Use History: None Reported - Past Family History Daughter(s) Family Medical History: Diabetes Mellitus Medications and Allergies Home Medications Medication Instructions Recorded Confirmed Type Ondansetron Odt [Zofran Odt] 4 mg PO Q8HR PRN #10 tab 04/04/24 04/05/24 Rx Albuterol Sulfate [Albuterol 2 puff PO RT-Q4H PRN 04/05/24 04/05/24 History Sulfate Hfa] Cetirizine HCl [Zyrtec] 10 mg PO DAILY 04/05/24 04/05/24 History Ergocalciferol (Vitamin D2) 1,250 mcg PO Q7D 04/05/24 04/05/24 History [Drisdol (50,000 Iu)] Allergies Allergy/AdvReac Type Severity Reaction Status Date / Time meclizine HCl [From Antivert] Allergy Rash/Hives Verified 04/05/24 10:08 cephalexin [From Keflex] AdvReac "Upset Verified 04/05/24 10:08 stomach" Physical Exam Osteopathic Statement: *. No significant issues noted on an osteopathic structural exam other than those noted in the History and Physical/Consult. Vitals: Vital Signs Temp Pulse Resp BP Pulse Ox 04/05/24 12:21 97.9 F 73 18 119/87 99 04/05/24 10:00 83 20 114/78 96 04/05/24 08:42 89 20 133/86 94 L 04/05/24 07:44 86 20 113/69 97 04/05/24 05:51 98.0 F 98 20 126/86 100 Intake and Output 04/04/24 04/05/24 04/05/24 22:59 06:59 14:59 Other: Weight 65.771 kg Results CBC & Chem 7: 04/05/24 05:53 04/05/24 05:53 Labs: Abnormal Lab Results - Last 24 Hours (Table) 04/05/24 04/05/24 Range/Units 05:53 05:53 Lymphocytes # 0.9 L (1.0-4.8) k/uL Glucose 135 H (74-99) mg/dL
[2024-04-05] MEDS: HEPARIN SODIUM,PORCINE 5,000 UNIT/ML 1 ML VIAL SQ SCH (21:49)
[2024-04-06] MEDS: ONDANSETRON 4 MG/2 ML VIAL IVP PRN ×2 (01:10→14:50)
[2024-04-06] MEDS: HYDROmorphone 1 MG/ML 1 ML SYRINGE IVP PRN (01:33)
[2024-04-06] MEDS: PROCHLORPERAZINE INJ 10 MG/2 ML VIAL IVP STA (05:43)
[2024-04-06] MEDS: LORATADINE 10 MG TAB PO SCH (08:05)
--- NOTE | 2024-04-06 10:12 | P.PN ---
Subjective Progress Note Date: 04/06/24 Principal diagnosis: Abdominal pain Patient says her pain is somewhat less today. Has not had any since last night. NG output is minimal. No flatus or bowel movement. Feels nauseated. Abdominal x-rays reviewed and still shows some mild small bowel dilation. She is afebrile. No labs from this morning. Objective - Vital Signs Vital signs: Vital Signs Temp 98.6 F 04/06/24 07:28 Pulse 90 04/06/24 07:28 Resp 16 04/06/24 07:28 BP 135/75 04/06/24 07:28 Pulse Ox 98 04/06/24 07:28 FiO2 Intake & Output 04/05/24 04/06/24 04/06/24 18:59 06:59 18:59 Intake Total 0 Output Total 70 Balance -70 Weight 65.771 kg Intake: Oral 0 Output: Gastric Drainage 70 Other: Voiding Method Bedside Commode Diaper # Voids 3 - Exam Abdomen: Soft, nondistended, mild lower abdominal tenderness improved - Labs CBC & Chem 7: 04/05/24 05:53 04/05/24 05:53 Labs: Abnormal Lab Results - Last 24 Hours (Table) 04/05/24 Range/Units 14:37 Ur Specific [place] >1.050 H (1.001-1.035) Urine Protein Trace H (Negative) Urine Ketones 2+ H (Negative) Urine Blood Small H (Negative) Ur Leukocyte Esterase Large H (Negative) Urine RBC 31 H (0-5) /hpf Urine WBC 59 H (0-5) /hpf Urine Mucus Rare H (None) /hpf Assessment and Plan (1) Small bowel obstruction Narrative/Plan: 54-year-old female with partial small bowel obstruction possibly on the basis of inflammatory bowel disease or infectious enterocolitis. Continue antibiotics. Remove nasogastric tube. Continue ice chips only for now. Repeat labs tomorrow. Will follow. Current Visit: Yes Status: Acute Code(s): K56.609 - UNSP INTESTNL OBST, UNSP TO PARTIAL VERSUS COMPLETE OBST SNOMED Code(s): 601844194
--- NOTE | 2024-04-06 10:20 | XR ---
EXAMINATION TYPE: XR abdomen 2V DATE OF EXAM: 04/06/2024 9:47 AM COMPARISON: None. CLINICAL INDICATION: Female, 54 years old with history of Follow-up SBO, TECHNIQUE: XR abdomen 2V view(s) obtained. FINDINGS: There is nonspecific bowel gas present. Some mild prominent air-filled small bowel within the midabdo men. Colonic bowel gas is present. No suspicious air-fluid levels or differential air-fluid levels ar e present. No free air is present. Nasogastric tube tip is in the left upper quadrant of the abdomen. Psoas margins are normal. No organomegaly is present. IUD is in the midline IMPRESSION: 1. Nonspecific abdomen. Mildly prominent small bowel loops containing air is in the mid abdomen. Obst ruction however is not identified based on the current images. Follow-up can be performed as clinical ly indicated [facility], , 04/06/2024 10:18 AM
--- NOTE | 2024-04-06 15:01 | P.PN ---
Subjective Progress Note Date: 04/06/24 (delayed charting seen at 0830) 54-year-old with no significant past medical history presenting with small bowel obstruction. Currently has NG tube in place Patient seen and examined at bedside. Passing flatus and bowel movement. Still with some nausea. Abdominal pain better but has not abated. Vital signs reviewed General: Nontoxic, no distress, appears at stated age Cardiovascular: S1S2 reg, no murmur Lungs: CTA bilateral, no rhonchi, no rales, no accessory muscle use Abdominal: Soft, palpation diffusely, no guarding Ext: No gross muscle atrophy, no edema b/l lower extremities, no contractures Neuro: CN II-XI grossly intact, no focal neuro deficits Psych: Alert, oriented, appropriate affect Assessment/Plan: Small bowel obstruction Sore throat -Infectious versus inflammatory colitis -Treated G-tube. -Added benzocaine spray for throat pain and ice chips. -On metronidazole and Zosyn. Could consider discontinuing metronidazole if surgery in agreement Imaging: None new Data Review: None new Thank you for allowing us to participate in the care of this pleasant patient. Do not hesitate to contact us with questions. Someone can be reached from the [facility] hospitalist group all hours of the day at [phone] or via [employer]. This dictation was prepared using getbetter! voice recognition software. Though every attempt is made to correct errors during dictation some may still exist. Objective - Vital Signs Vital signs: Vital Signs Temp 98.0 F 04/06/24 12:12 Pulse 90 04/06/24 12:12 Resp 16 04/06/24 12:12 BP 117/71 04/06/24 12:12 Pulse Ox 95 04/06/24 12:12 FiO2 Intake & Output 04/05/24 04/06/24 04/06/24 18:59 06:59 18:59 Intake Total 0 240 Output Total 70 Balance -70 240 Weight 65.771 kg Intake: Oral 0 240 Output: Gastric Drainage 70 Other: Voiding Method Bedside Commode Bedside Commode Diaper Diaper # Voids 3 5 - Labs CBC & Chem 7: 04/05/24 05:53 04/05/24 05:53 Labs: Abnormal Lab Results - Last 24 Hours (Table) 04/05/24 Range/Units 14:37 Ur Specific [place] >1.050 H (1.001-1.035) Urine Protein Trace H (Negative) Urine Ketones 2+ H (Negative) Urine Blood Small H (Negative) Ur Leukocyte Esterase Large H (Negative) Urine RBC 31 H (0-5) /hpf Urine WBC 59 H (0-5) /hpf Urine Mucus Rare H (None) /hpf
[2024-04-06] MEDS: LORazepam 2 MG/ML INJ IV PRN (20:26)
[2024-04-07] MEDS: ERGOCALCIFEROL 1,250 MCG (50,000 IU) CAPSULE PO SCH (08:01)
[2024-04-07 09:29] LABS: Basophils # (A) 0.01 X 10*3/uL (0.00-0.10); Basophils % (A) 0.3 %; Eosinophils # (A) 0.06 X 10*3/uL (0.04-0.35); Eosinophils % (A) 1.7 %; HCT 32.5 % (37.2-46.3); HGB 10.6 g/dL (12.0-15.0); Lymphocytes # (A) 1.29 X 10*3/uL (0.90-5.00); Lymphocytes % (A) 37.4 %; MCH 29.1 pg (27.0-32.0); MCHC 32.6 g/dL (32.0-37.0); MCV 89.3 FL (80.0-97.0); Mean Platelet Volume 11.2 FL (9.5-12.2); Monocytes # (A) 0.36 X 10*3/uL (0.20-1.00); Monocytes % (A) 10.4 %; NRBC Per 100 WBC 0 X 10*3/uL (0.00-0.01); Neutrophils # (A) 1.72 X 10*3/uL (1.80-7.70); Neutrophils % (A) 49.9 %; Platelet Count 113 X 10*3/uL (140-440); RBC 3.64 X 10*6/uL (4.10-5.20); RDW 12.9 % (11.5-14.5); WBC 3.45 X 10*3/uL (4.50-10.00)
--- NOTE | 2024-04-07 10:16 | P.PN ---
Subjective Progress Note Date: 04/07/24 Principal diagnosis: Abdominal pain Patient feeling better today. Still having some nausea. She did drink a frozen Coke yesterday without difficulty. Says it actually made her feel better. No bowel movement. Passing some flatus. No vomiting. Objective - Vital Signs Vital signs: Vital Signs Temp 98.7 F 04/07/24 07:18 Pulse 72 04/07/24 07:18 Resp 16 04/07/24 07:18 BP 126/74 04/07/24 07:18 Pulse Ox 97 04/07/24 07:18 FiO2 Intake & Output 04/06/24 04/07/24 04/07/24 18:59 06:59 18:59 Intake Total 960 240 Balance 960 240 Intake: Oral 960 240 Other: Voiding Method Bedside Commode Toilet Diaper # Voids 5 1 - Exam Abdomen: Soft, mild lower abdominal tenderness, no rebound or guarding - Labs CBC & Chem 7: 04/07/24 05:37 04/05/24 05:53 Labs: Abnormal Lab Results - Last 24 Hours (Table) 04/07/24 Range/Units 05:37 WBC 3.45 L (4.50-10.00) X 10*3/uL RBC 3.64 L (4.10-5.20) X 10*6/uL Hgb 10.6 L (12.0-15.0) g/dL Hct 32.5 L (37.2-46.3) % Plt Count 113 L (140-440) X 10*3/uL Neutrophils # 1.72 L (1.80-7.70) X 10*3/uL Microbiology - Last 24 Hours (Table) 04/05/24 14:37 Urine Culture - Final Urine,Voided 04/05/24 08:35 Blood Culture - Preliminary Blood Assessment and Plan (1) Small bowel obstruction Narrative/Plan: Patient doing better today. Begin clear liquid diet. Check small bowel series tomorrow. Current Visit: Yes Status: Acute Code(s): K56.609 - UNSP INTESTNL OBST, UNSP TO PARTIAL VERSUS COMPLETE OBST SNOMED Code(s): 649905507
[2024-04-07] MEDS: BENZOCAINE SPRAY 1 CAN MUCOUS MEM PRN (10:34)
[2024-04-07 11:28] LABS: BUN/Creat Ratio 23.86 Ratio (12.00-20.00); Blood Urea Nitrogen 16.7 mg/dL (9.0-27.0); Calcium 8.2 mg/dL (8.7-10.3); Carbon Dioxide 22.3 mmol/L (21.6-31.8); Chloride 114 mmol/L (96-109); Glucose 96 mg/dL (70-110); Potassium 3.5 mmol/L (3.5-5.5); Sodium 146 mmol/L (135-145)
--- NOTE | 2024-04-07 12:29 | P.PN ---
Subjective Progress Note Date: 04/07/24 No new complaints. Sore on mouth treated with benzocaine. Abd pain, nausea, improved. Tolerating CLD. NGT removed. Gen: In NAD, non-toxic HEENT: normocephalic, atraumatic, hearing acuity is intant, mucous membranes moist CVS: perfusing all extremities well, no pitting edema, Respiratory: symmetric chest expansion, no accessory muscle use, GI: soft, diffusely tender to palpation, distended : no suprapubic tenderness, no CVA tenderness MSK/Derm: no rashes, cyanosis Neuro: CN II-XII intact, no motor weakness, Psych: cooperative, euthymic mood, judgment and insight is intact Hospital Course: 54-year-old woman with a medical history of asthma presenting for evaluation of abdominal pain. In the emergency room, patient was afebrile, 126/86, heart rate 98, 100% on room air. CBC is unremarkable. Comprehensive metabolic panel is unremarkable. Lipase was 119. Urinalysis shows high specific gravity of 1.05, trace protein, 2+ ketones, small amount of blood, large leukocyte esterase, 31 r ed blood cells, [address] of the abdomen/pelvis shows small bowel obstruction, infectious versus inflammatory colitis, mesenteric edema, incidental renal stone. The patient was admitted to the surgical service for small bowel obstruction and medicine was consulted for management of colitis. Assessment/plan: Small bowel obstruction Infectious/inflammatory colitis -Inflammatory felt less likely at this point due to low CRP/ESR -Agree with CLD, management per surgery -Agree with antibiotics, Zosyn, Flagyl (outpatient abx can be cipro/flagyl or cefdinir/flagyl per preference of surgery) -ESR, CRP reviewed and low -Stool culture if having loose bowel movements, which patient has not had -Small bowel follow through series ordered and pending Pt is Full Code DVT PPx: heparin 5000U q12h Objective - Vital Signs Vital signs: Vital Signs Temp 99.4 F 04/07/24 11:41 Pulse 72 04/07/24 11:41 Resp 16 04/07/24 11:41 BP 121/73 04/07/24 11:41 Pulse Ox 99 04/07/24 11:41 FiO2 Intake & Output 04/06/24 04/07/24 04/07/24 18:59 06:59 18:59 Intake Total 960 240 Balance 960 240 Intake: Oral 960 240 Other: Voiding Method Bedside Commode Toilet Diaper # Voids 5 1 - Labs CBC & Chem 7: 04/07/24 05:37 04/07/24 05:37 Labs: Abnormal Lab Results - Last 24 Hours (Table) 04/07/24 04/07/24 Range/Units 05:37 05:37 WBC 3.45 L (4.50-10.00) X 10*3/uL RBC 3.64 L (4.10-5.20) X 10*6/uL Hgb 10.6 L (12.0-15.0) g/dL Hct 32.5 L (37.2-46.3) % Plt Count 113 L (140-440) X 10*3/uL Neutrophils # 1.72 L (1.80-7.70) X 10*3/uL Sodium 146 H (135-145) mmol/L Chloride 114 H (96-109) mmol/L BUN/Creatinine Ratio 23.86 H (12.00-20.00) Ratio Calcium 8.2 L (8.7-10.3) mg/dL Microbiology - Last 24 Hours (Table) 04/05/24 14:37 Urine Culture - Final Urine,Voided 04/05/24 08:35 Blood Culture - Preliminary Blood
[2024-04-07 15:28] LABS: Basophils % (A) 0 %; Eosinophils # (A) 0.1 k/uL (0-0.7); Eosinophils % (A) 2 %; HCT 34.6 % (34.0-46.0); HGB 11.6 gm/dL (11.4-16.0); Lymphocytes % (A) 28 %; MCH 29.5 pg (25.0-35.0); MCHC 33.5 g/dL (31.0-37.0); Mean Platelet Volume 8.2; Monocytes # (A) 0.2 k/uL (0-1.0); Monocytes % (A) 7 %; Neutrophils # (A) 2.2 k/uL (1.3-7.7); Neutrophils % (A) 61 %; Platelet Count 118 k/uL (150-450); RBC 3.94 m/uL (3.80-5.40); RDW 12.6 % (11.5-15.5); WBC 3.6 k/uL (3.8-10.6)
--- NOTE | 2024-04-08 08:47 | XR ---
EXAMINATION TYPE: XR KUB DATE OF EXAM: 04/08/2024 8:24 AM COMPARISON: None. CLINICAL INDICATION: Female, 54 years old with history of SBO, TECHNIQUE: XR KUB view(s) obtained. FINDINGS: There is a normal bowel gas pattern. Air is throughout the colon. Psoas margins are normal. No organomegaly is present. IUD is pelvis. Calcification is in the right upper quadrant echogenic gallstone. IMPRESSION: 1. No suspicious changes for obstruction. 2. [facility], , 04/08/2024 8:45 AM
[2024-04-08 09:00] LABS: BUN/Creat Ratio 16.71 Ratio (12.00-20.00); Blood Urea Nitrogen 11.7 mg/dL (9.0-27.0); Calcium 7.8 mg/dL (8.7-10.3); Carbon Dioxide 22.6 mmol/L (21.6-31.8); Chloride 112 mmol/L (96-109); Glucose 102 mg/dL (70-110); Magnesium 1.8 mg/dL (1.5-2.4); Potassium 3.1 mmol/L (3.5-5.5); Sodium 144 mmol/L (135-145)
[2024-04-08 09:31] LABS: Basophils # (A) 0.02 X 10*3/uL (0.00-0.10); Basophils % (A) 0.7 %; Eosinophils # (A) 0.05 X 10*3/uL (0.04-0.35); Eosinophils % (A) 1.6 %; HGB 10.4 g/dL (12.0-15.0); Lymphocytes % (A) 39.3 %; MCH 28.1 pg (27.0-32.0); MCHC 31.5 g/dL (32.0-37.0); MCV 89.2 FL (80.0-97.0); Mean Platelet Volume 11.5 FL (9.5-12.2); Monocytes # (A) 0.33 X 10*3/uL (0.20-1.00); Monocytes % (A) 10.8 %; NRBC Per 100 WBC 0 X 10*3/uL (0.00-0.01); Neutrophils # (A) 1.44 X 10*3/uL (1.80-7.70); Neutrophils % (A) 47.3 %; Platelet Count 127 X 10*3/uL (140-440); RDW 12.7 % (11.5-14.5); WBC 3.05 X 10*3/uL (4.50-10.00)
--- NOTE | 2024-04-08 12:27 | P.PN ---
Subjective Progress Note Date: 04/08/24 No new complaints. Had BM, KUB shows resolution of SBO. Medically stable for discharge once tolerating a diet and oral abx as below Gen: In NAD, non-toxic HEENT: normocephalic, atraumatic, hearing acuity is intant, mucous membranes moist CVS: perfusing all extremities well, no pitting edema, Respiratory: symmetric chest expansion, no accessory muscle use, GI: soft, diffusely tender to palpation, distended : no suprapubic tenderness, no CVA tenderness MSK/Derm: no rashes, cyanosis Neuro: CN II-XII intact, no motor weakness, Hospital Course: 54-year-old woman with a medical history of asthma presenting for evaluation of abdominal pain. In the emergency room, patient was afebrile, 126/86, heart rate 98, 100% on room air. CBC is unremarkable. Comprehensive metabolic panel is unremarkable. Lipase was 119. Urinalysis shows high specific gravity of 1.05, trace protein, 2+ ketones, small amount of blood, large leukocyte esterase, 31 red blood cells, [address] of the abdomen/pelvis shows small bowel obstruction, infectious versus inflammatory colitis, mesenteric edema, incidental renal stone. The patient was admitted to the surgical service for small bowel obstruction and medicine was consulted for management of colitis. Assessment/plan: Small bowel obstruction Infectious/inflammatory colitis -Inflammatory felt less likely at this point due to low CRP/ESR -Agree with CLD, management per surgery -Agree with antibiotics, Zosyn, Flagyl (outpatient abx can be cipro/flagyl or cefdinir/flagyl per preference of surgery) -ESR, CRP reviewed and low -Stool culture if having loose bowel movements, which patient has not had -Small bowel follow through series canceled since pt could not tolerate -KUB reviewed and shows resolution of SBO Pt is Full Code DVT PPx: heparin 5000U q12h Objective - Vital Signs Vital signs: Vital Signs Temp 98.7 F 04/08/24 07:08 Pulse 81 04/08/24 07:08 Resp 15 04/08/24 07:08 BP 128/76 04/08/24 07:08 Pulse Ox 92 L 04/08/24 07:08 FiO2 Intake & Output 04/07/24 04/08/24 04/08/24 18:59 06:59 18:59 Intake Total 2300 Balance 2300 Intake: Oral 2300 Other: Voiding Method Toilet # Voids 4 1 # Bowel Movements 1 - Labs CBC & Chem 7: 04/08/24 04:22 04/08/24 04:22 Labs: Abnormal Lab Results - Last 24 Hours (Table) 04/07/24 04/08/24 04/08/24 Range/Units 15:01 04:22 04:22 WBC 3.6 L 3.05 L (3.8-10.6) k/uL RBC 3.70 L (4.10-5.20) X 10*6/uL Hgb 10.4 L (12.0-15.0) g/dL Hct 33.0 L (37.2-46.3) % MCHC 31.5 L (32.0-37.0) g/dL Plt Count 118 L 127 L (150-450) k/uL Neutrophils # 1.44 L (1.80-7.70) X 10*3/uL Potassium 3.1 L (3.5-5.5) mmol/L Chloride 112 H (96-109) mmol/L Calcium 7.8 L (8.7-10.3) mg/dL Microbiology - Last 24 Hours (Table) 04/05/24 08:35 Blood Culture - Preliminary Blood
--- NOTE | 2024-04-08 14:23 | P.PN ---
Subjective Progress Note Date: 04/08/24 SURGICAL PROGRESS NOTE CHIEF COMPLAINT: Abdominal pain HISTORY OF PRESENT ILLNESS: Patient initially scheduled for small bowel follow- through today. She did not tolerate the Gastrografin. Therefore study was canceled. She does continue to have some abdominal discomfort with nausea. She did have a bowel movement. She has been having flatus. She has been drinking just a small amount of the liquids. Afebrile. WBC 3.05 Hgb 10.4 platelets 127 potassium 3.1 magnesium 1.8 PHYSICAL EXAM: VITAL SIGNS: Reviewed. GENERAL: Well-developed in no acute distress. HEENT: No sclera icterus. Extraocular movements grossly intact. Moist buccal mucosa. Head is atraumatic, normocephalic. ABDOMEN: Soft. Nondistended. Mild lower abdominal discomfort with palpation. Umbilical hernia reducible. No guarding or rebound tenderness. NEUROLOGIC: Alert and oriented. Cranial nerves II through XII grossly intact. ASSESSMENT: 1. Partial small bowel obstruction possibly on the basis of inflammatory bowel disease or infectious enterocolitis PLAN: -Advance diet to full liquids -Follow-up abdominal x-ray ordered for a.m. -Continue to monitor -Continue antibiotics Physician Jtac note has been reviewed by physician. Signing provider agrees with the documented findings, assessment, and plan of care. I have personally seen and examined the patient, reviewed the SINGE MACHINE OPERATOR /PAs history, exam and MDM and agree with the assessment and plan as written. Based on total visit time, I have performed more than 50% of the visit. As above: Repeat abdominal x-rays tomorrow. Will discuss possible MRI with r terri. Objective - Vital Signs Vital signs: Vital Signs Temp 98.5 F 04/08/24 13:23 Pulse 61 04/08/24 13:23 Resp 19 04/08/24 13:23 BP 134/87 04/08/24 13:23 Pulse Ox 99 04/08/24 13:23 FiO2 Intake & Output 04/07/24 04/08/24 04/08/24 18:59 06:59 18:59 Intake Total 2300 Balance 2300 Intake: Oral 2300 Other: Voiding Method Toilet # Voids 4 1 # Bowel Movements 1 - Labs CBC & Chem 7: 04/08/24 04:22 04/08/24 04:22 Labs: Abnormal Lab Results - Last 24 Hours (Table) 04/07/24 04/08/24 04/08/24 Range/Units 15:01 04:22 04:22 WBC 3.6 L 3.05 L (3.8-10.6) k/uL RBC 3.70 L (4.10-5.20) X 10*6/uL Hgb 10.4 L (12.0-15.0) g/dL Hct 33.0 L (37.2-46.3) % MCHC 31.5 L (32.0-37.0) g/dL Plt Count 118 L 127 L (150-450) k/uL Neutrophils # 1.44 L (1.80-7.70) X 10*3/uL Potassium 3.1 L (3.5-5.5) mmol/L Chloride 112 H (96-109) mmol/L Calcium 7.8 L (8.7-10.3) mg/dL Microbiology - Last 24 Hours (Table) 04/05/24 08:35 Blood Culture - Preliminary Blood
[2024-04-08] MEDS: POTASSIUM CHLORIDE ER 20 MEQ TAB.ER PO STA (15:38)
[2024-04-08 22:43] LABS: Cryptosporidium Antigen Negative (Negative)
[2024-04-09] MEDS: ONDANSETRON 4 MG/2 ML VIAL IVP STA (02:18)
[2024-04-09] MEDS: ALBUTEROL NEBULIZED 2.5 MG/3 ML INHALATION PRN (07:28)
--- NOTE | 2024-04-09 08:55 | XR ---
EXAMINATION TYPE: XR abdomen 2V DATE OF EXAM: 04/09/2024 8:48 AM COMPARISON: None. CLINICAL INDICATION: Female, 54 years old with history of abdominal pain, SBO, TECHNIQUE: XR abdomen 2V view(s) obtained. FINDINGS: There is a normal bowel gas pattern. Psoas margins are normal. No organomegaly is present. IUD is in the pelvis. There may be a gallstone in the right upper quadrant. Small pleural effusions m ay be present.a No free air is evident. IMPRESSION: 1. [facility], , 04/09/2024 8:52 AM
[2024-04-09 09:03] LABS: BUN/Creat Ratio 9.14 Ratio (12.00-20.00); Blood Urea Nitrogen 6.4 mg/dL (9.0-27.0); Carbon Dioxide 23.3 mmol/L (21.6-31.8); Chloride 112 mmol/L (96-109); Glucose 121 mg/dL (70-110); Potassium 3.3 mmol/L (3.5-5.5); Sodium 144 mmol/L (135-145)
[2024-04-09 10:40] LABS: Basophils # (A) 0.01 X 10*3/uL (0.00-0.10); Basophils % (A) 0.3 %; Eosinophils # (A) 0.05 X 10*3/uL (0.04-0.35); Eosinophils % (A) 1.6 %; HCT 32.7 % (37.2-46.3); HGB 10.7 g/dL (12.0-15.0); Lymphocytes # (A) 0.94 X 10*3/uL (0.90-5.00); Lymphocytes % (A) 30.1 %; MCH 28.7 pg (27.0-32.0); MCHC 32.7 g/dL (32.0-37.0); MCV 87.7 FL (80.0-97.0); Monocytes # (A) 0.32 X 10*3/uL (0.20-1.00); Monocytes % (A) 10.3 %; NRBC Per 100 WBC 0 X 10*3/uL (0.00-0.01); Neutrophils # (A) 1.79 X 10*3/uL (1.80-7.70); Neutrophils % (A) 57.4 %; Platelet Count 126 X 10*3/uL (140-440); RBC 3.73 X 10*6/uL (4.10-5.20); RDW 12.8 % (11.5-14.5); WBC 3.12 X 10*3/uL (4.50-10.00)
--- NOTE | 2024-04-09 14:44 | P.PN ---
Subjective Progress Note Date: 04/09/24 Pt now having diarrhea, stool cx pending, low likelihood of yielding positive results given duration of abx prior to obtaining culture Gen: In NAD, non-toxic HEENT: normocephalic, atraumatic, hearing acuity is intant, mucous membranes moist CVS: perfusing all extremities well, no pitting edema, Respiratory: symmetric chest expansion, no accessory muscle use, GI: soft, diffusely tender to palpation, distended : no suprapubic tenderness, no CVA tenderness MSK/Derm: no rashes, cyanosis Neuro: CN II-XII intact, no motor weakness, Hospital Course: 54-year-old woman with a medical history of asthma presenting for evaluation of abdominal pain. In the emergency room, patient was afebrile, 126/86, heart rate 98, 100% on room air. CBC is unremarkable. Comprehensive metabolic panel is unremarkable. Lipase was 119. Urinalysis shows high specific gravity of 1.05, trace protein, 2+ ketones, small amount of blood, large leukocyte esterase, 31 red blood cells, [address] of the abdomen/pelvis shows small bowel obstruction, infectious versus inflammatory colitis, mesenteric edema, incidental renal stone. The patient was admitted to the surgical service for small bowel obstruction and medicine was consulted for management of colitis. Assessment/plan: Small bowel obstruction Infectious/inflammatory colitis -Inflammatory felt less likely at this point due to low CRP/ESR -Agree with CLD, management per surgery -Agree with antibiotics, Zosyn, Flagyl (outpatient abx can be cipro/flagyl or cefdinir/flagyl per preference of surgery) -ESR, CRP reviewed and low -Stool culture is pending, pt now having diarrhea -KUB reviewed and shows resolution of SBO -Abdominal XR with no evidence of SBO, pt now having diarrhea, stool Cx is pending Pt is Full Code DVT PPx: heparin 5000U q12h Objective - Vital Signs Vital signs: Vital Signs Temp 99.2 F 04/09/24 07:21 Pulse 59 L 04/09/24 07:36 Resp 16 04/09/24 08:00 BP 148/87 04/09/24 07:21 Pulse Ox 96 04/09/24 07:21 FiO2 Intake & Output 04/08/24 04/09/24 04/09/24 18:59 06:59 18:59 Intake Total 3040 590 Balance 3040 590 Intake: Intake, IV Titration 1960 Amount Piperacillin-Tazobactam 3 200 .375 gm In Sodium Chloride 0.9% 100 ml @ 25 mls/hr IVPB Q8HR [facility] Rx# :[id number] Sodium Chloride 0.9% 1, 1560 000 ml @ 130 mls/hr IV . Q7H42M [facility] Rx#:[id number] metroNIDAZOLE-NS PMX 500 200 mg In Saline 1 100ml.bag @ 100 mls/hr IVPB Q8H [facility] Rx#:[id number] Oral 1080 590 Other: Voiding Method Toilet # Voids 2 4 # Bowel Movements 1 3 - Labs CBC & Chem 7: 04/09/24 05:20 04/09/24 05:20 Labs: Abnormal Lab Results - Last 24 Hours (Table) 04/09/24 04/09/24 Range/Units 05:20 05:20 WBC 3.12 L (4.50-10.00) X 10*3/uL RBC 3.73 L (4.10-5.20) X 10*6/uL Hgb 10.7 L (12.0-15.0) g/dL Hct 32.7 L (37.2-46.3) % Plt Count 126 L (140-440) X 10*3/uL Neutrophils # 1.79 L (1.80-7.70) X 10*3/uL Potassium 3.3 L (3.5-5.5) mmol/L Chloride 112 H (96-109) mmol/L BUN 6.4 L (9.0-27.0) mg/dL BUN/Creatinine Ratio 9.14 L (12.00-20.00) Ratio Glucose 121 H (70-110) mg/dL Calcium 8.0 L (8.7-10.3) mg/dL Microbiology - Last 24 Hours (Table) 04/08/24 12:20 Stool Culture - Preliminary Stool 04/05/24 08:35 Blood Culture - Preliminary Blood
--- NOTE | 2024-04-09 14:49 | P.PN ---
Subjective Progress Note Date: 04/09/24 SURGICAL PROGRESS NOTE CHIEF COMPLAINT: Abdominal pain HISTORY OF PRESENT ILLNESS: Patient reports that she is starting to feel better. She does report being nauseated earlier this morning after eating. No vomiting. She is having diarrhea. Reports decreased abdominal pain. Abdominal x-ray reports normal bowel gas pattern. Does note cholelithiasis. Stool cultures pending. Afebrile. WBC 3.12 Hgb 10.7 potassium 3.3 PHYSICAL EXAM: VITAL SIGNS: Reviewed. GENERAL: no acute distress. ABDOMEN: Soft. Nondistended. Mild discomfort with palpation to the mid abdomen. Umbilical hernia reducible. No guarding or rebound tenderness. NEUROLOGIC: Alert and oriented. Cranial nerves II through XII grossly intact. ASSESSMENT: 1. Partial small bowel obstruction possibly on the basis of inflammatory bowel disease or infectious enterocolitis PLAN: -Advance diet to regular -Recommend outpatient MRI of abdomen -Continue antibiotics -Anticipate discharge tomorrow if patient tolerating diet Physician Licensed Guide note has been reviewed by physician. Signing provider agrees with the documented findings, assessment, and plan of care. Objective - Vital Signs Vital signs: Vital Signs Temp 99.2 F 04/09/24 07:21 Pulse 59 L 04/09/24 07:36 Resp 16 04/09/24 08:00 BP 148/87 04/09/24 07:21 Pulse Ox 96 04/09/24 07:21 FiO2 Intake & Output 04/08/24 04/09/24 04/09/24 18:59 06:59 18:59 Intake Total 3040 590 Balance 3040 590 Intake: Intake, IV Titration 1960 Amount Piperacillin-Tazobactam 3 200 .375 gm In Sodium Chloride 0.9% 100 ml @ 25 mls/hr IVPB Q8HR [facility] Rx# :[id number] Sodium Chloride 0.9% 1, 1560 000 ml @ 130 mls/hr IV . Q7H42M [facility] Rx#:[id number] metroNIDAZOLE-NS PMX 500 200 mg In Saline 1 100ml.bag @ 100 mls/hr IVPB Q8H [facility] Rx#:[id number] Oral 1080 590 Other: Voiding Method Toilet # Voids 2 4 # Bowel Movements 1 3 - Labs CBC & Chem 7: 04/09/24 05:20 04/09/24 05:20 Labs: Abnormal Lab Results - Last 24 Hours (Table) 04/09/24 04/09/24 Range/Units 05:20 05:20 WBC 3.12 L (4.50-10.00) X 10*3/uL RBC 3.73 L (4.10-5.20) X 10*6/uL Hgb 10.7 L (12.0-15.0) g/dL Hct 32.7 L (37.2-46.3) % Plt Count 126 L (140-440) X 10*3/uL Neutrophils # 1.79 L (1.80-7.70) X 10*3/uL Potassium 3.3 L (3.5-5.5) mmol/L Chloride 112 H (96-109) mmol/L BUN 6.4 L (9.0-27.0) mg/dL BUN/Creatinine Ratio 9.14 L (12.00-20.00) Ratio Glucose 121 H (70-110) mg/dL Calcium 8.0 L (8.7-10.3) mg/dL Microbiology - Last 24 Hours (Table) 04/08/24 12:20 Stool Culture - Preliminary Stool 04/05/24 08:35 Blood Culture - Preliminary Blood
[2024-04-09] MEDS: POTASSIUM CHLORIDE ER 20 MEQ TAB.ER PO STA (15:28)
[2024-04-10 09:08] LABS: Basophils % (A) 0 %; Eosinophils # (A) 0.1 k/uL (0-0.7); Eosinophils % (A) 2 %; HCT 33.1 % (34.0-46.0); HGB 11.2 gm/dL (11.4-16.0); Lymphocytes # (A) 0.8 k/uL (1.0-4.8); Lymphocytes % (A) 24 %; MCH 29.4 pg (25.0-35.0); MCHC 33.9 g/dL (31.0-37.0); MCV 86.9 fL (80.0-100.0); Mean Platelet Volume 9.7; Monocytes # (A) 0.2 k/uL (0-1.0); Monocytes % (A) 6 %; Neutrophils # (A) 2.4 k/uL (1.3-7.7); Neutrophils % (A) 67 %; Platelet Count 135 k/uL (150-450); RBC 3.81 m/uL (3.80-5.40); WBC 3.6 k/uL (3.8-10.6)
[2024-04-10 09:20] LABS: African American GFR (CKD) >90 (>60 ml/min/1.73 sqM); Anion Gap 7 mmol/L; Blood Urea Nitrogen 2 mg/dL (7-17); Calcium 8.3 mg/dL (8.4-10.2); Carbon Dioxide 26 mmol/L (22-30); Chloride 108 mmol/L (98-107); Glucose 102 mg/dL (74-99); Non-African American GFR(CKD) >90 (>60 ml/min/1.73 sqM); Potassium 3.5 mmol/L (3.5-5.1); Sodium 141 mmol/L (137-145)
[2024-04-10] MEDS ORDERED: traMADol 50 MG TAB PO PRN (11:26)
[2024-04-10] MEDS: PROCHLORPERAZINE INJ 10 MG/2 ML VIAL IVP PRN (11:34)
[2024-04-10] MEDS ORDERED: HYDROmorphone 0.5 MG/0.5 ML SYRINGE IVP PRN (14:01)
--- NOTE | 2024-04-10 14:02 | P.PN ---
Subjective Progress Note Date: 04/10/24 SURGICAL PROGRESS NOTE CHIEF COMPLAINT: Abdominal pain HISTORY OF PRESENT ILLNESS: Patient not feeling well today. She complains more of a headache cough and sore throat. She did have a low-grade temp of 100 last night. She does report some mild abdominal discomfort throughout her abdomen. She denies any vomiting. She did report nausea. She is having diarrhea. Per nursing staff the stools were more formed. Nurse also reports that patient is complaining of dizziness and nausea. Currently afebrile. Vital stable. WBC is 3.6 Hgb 11.2 platelets 135. Sodium 141 potassium 3.5 creatinine 0.69 stool studies are negative so far. PHYSICAL EXAM: VITAL SIGNS: Reviewed. GENERAL: no acute distress. ABDOMEN: Soft. Nondistended. Mild diffuse abdominal discomfort with palpation. NEUROLOGIC: Alert and oriented. Cranial nerves II through XII grossly intact. ASSESSMENT: 1. Partial small bowel obstruction possibly on the basis of inflammatory bowel disease or infectious enterocolitis PLAN: -Continue to monitor -Continue regular diet -Recommend outpatient MRI of abdomen -Continue antibiotics -Discontinuing the IV Dilaudid 1 mg and change frequency of Dilaudid 0.5 every 6 as needed -Trying to transition patient to oral medications. Ultram ordered. And Compazine ordered for nausea Physician Marketing Reporting Analyst note has been reviewed by physician. Signing provider agrees with the documented findings, assessment, and plan of care. Objective - Vital Signs Vital signs: Vital Signs Temp 98.1 F 04/10/24 11:03 Pulse 59 L 04/10/24 11:29 Resp 18 04/10/24 11:03 BP 148/75 04/10/24 11:29 Pulse Ox 98 04/10/24 11:03 FiO2 Intake & Output 04/09/24 04/10/24 04/10/24 18:59 06:59 18:59 Intake Total 580 Balance 580 Intake: Oral 580 Other: Voiding Method Toilet Toilet Toilet # Voids 3 1 # Bowel Movements 1 0 - Labs CBC & Chem 7: 04/10/24 08:43 04/10/24 08:43 Labs: Abnormal Lab Results - Last 24 Hours (Table) 04/10/24 04/10/24 Range/Units 08:43 08:43 WBC 3.6 L (3.8-10.6) k/uL Hgb 11.2 L (11.4-16.0) gm/dL Hct 33.1 L (34.0-46.0) % Plt Count 135 L (150-450) k/uL Lymphocytes # 0.8 L (1.0-4.8) k/uL Chloride 108 H (98-107) mmol/L BUN 2 L (7-17) mg/dL Glucose 102 H (74-99) mg/dL Calcium 8.3 L (8.4-10.2) mg/dL Microbiology - Last 24 Hours (Table) 04/08/24 12:20 Stool Culture - Preliminary Stool
--- NOTE | 2024-04-10 16:14 | P.PN ---
Subjective Progress Note Date: 04/10/24 Patient was seen and examined. Tolerating diet well. Reports lightheadedness, headache, fatigue and feeling "out of it" since receiving Dilaudid this morning. Pain is currently 1/10. CBC and BMP significant for WBC 3.6, Hg 11.2, Hct 33.1, Plt 135, Cl 108, BUN 2, glu 102, Ca 8.3. Stool Cx has been negative. I ordered an EKG which shows rate of 63 and QTc of 429. General: non toxic, no distress, appears at stated age Derm: warm, dry Head: atraumatic, normocephalic, symmetric Eyes: EOMI, no lid lag, anicteric sclera Mouth: no lip lesion, mucus membranes moist Cardiovascular: S1S2 reg, no murmur Lungs: Clear to auscultation bilateral, no rhonchi, no rales , no accessory muscle use Ext: no gross muscle atrophy, no edema, no contractures Neuro: no focal neuro deficits Psych: Alert, oriented, appropriate affect Based on my assessment of this patient, this patient meets a high complexity level of care. Small bowel obstruction Infectious/inflammatory colitis EKG reviewed given symptoms and that patient is on QTc prolonging agents. Discontinue Dilaudid and attempt trial of Tramadol 100 mg PO TID PRN. Zofran 4 mg IV Q6H PRN, Compazine 5 mg IV Q4H PRN N/V. Outpatient MRI Abd per surgery outpatient. CRP/ESR within normal limits. Agree with Zosyn, Flagyl (outpatient abx can be cipro/flagyl or cefdinir/flagyl per preference of surgery). Stool culture is negative. CODE STATUS: FULL CODE DVT Prophylaxis: Heparin SQ GI Prophylaxis: Protonix IV Designated medical POA if patient is not able to make medical decisions for themselves: I have reviewed the following operations consultant notes: Surgery. I have reviewed the results of the following tests: CBC, BMP, Stool Cx. I have ordered the following tests: I have discussed the care of this patient with the following independent historian: RAJNI. I have independently interpreted the following test below: EKG. I have discussed the management of this patient with the following physician: Objective - Vital Signs Vital signs: Vital Signs Temp 98.5 F 04/10/24 14:00 Pulse 76 04/10/24 14:00 Resp 19 04/10/24 14:00 BP 131/78 04/10/24 14:00 Pulse Ox 97 04/10/24 14:00 FiO2 Intake & Output 04/09/24 04/10/24 04/10/24 18:59 06:59 18:59 Intake Total 580 Balance 580 Intake: Oral 580 Other: Voiding Method Toilet Toilet Toilet # Voids 3 1 # Bowel Movements 1 0 - Labs CBC & Chem 7: 04/10/24 08:43 04/10/24 08:43 Labs: Abnormal Lab Results - Last 24 Hours (Table) 04/10/24 04/10/24 Range/Units 08:43 08:43 WBC 3.6 L (3.8-10.6) k/uL Hgb 11.2 L (11.4-16.0) gm/dL Hct 33.1 L (34.0-46.0) % Plt Count 135 L (150-450) k/uL Lymphocytes # 0.8 L (1.0-4.8) k/uL Chloride 108 H (98-107) mmol/L BUN 2 L (7-17) mg/dL Glucose 102 H (74-99) mg/dL Calcium 8.3 L (8.4-10.2) mg/dL Microbiology - Last 24 Hours (Table) 04/08/24 12:20 Stool Culture - Preliminary Stool
[2024-04-10] MEDS: ACETAMINOPHEN TAB 325 MG TAB NG-TUBE PRN (20:03)
--- NOTE | 2024-04-11 12:50 | P.PN ---
Subjective Progress Note Date: 04/11/24 Patient was seen and examined. Patient continues to report lightheadedness, one episode of NBNB N/V, continued diarrhea and feeling clamy. She reports chest pain, burning in nature which she related to heartburn. Stool Cx has been growing deya dubliniensis. I ordered an EKG which shows rate of 63 and QTc of 429. General: non toxic, no distress, appears at stated age Derm: warm, dry Head: atraumatic, normocephalic, symmetric Eyes: EOMI, no lid lag, anicteric sclera Mouth: no lip lesion, mucus membranes moist Cardiovascular: S1S2 reg, no murmur Lungs: Clear to auscultation bilateral, no rhonchi, no rales , no accessory muscle use Ext: no gross muscle atrophy, no edema, no contractures Neuro: no focal neuro deficits Psych: Alert, oriented, appropriate affect Based on my assessment of this patient, this patient meets a high complexity level of care. Lightheadedness with chest pain Small bowel obstruction Infectious/inflammatory colitis Obtain Trop/EKG to rule out cardiac cause. Obtain Orthostats. Telemetry monitoring. Discussed with Evelia YORK, deya likely contaminant, no treatment recommended, continue to monitor one more day. Switch Flagyl + Zosyn to Augmentin as her symptoms could be a side effect of medication. Check COVID, RSV, Flu. CODE STATUS: FULL CODE DVT Prophylaxis: Heparin SQ GI Prophylaxis: Protonix IV Designated medical POA if patient is not able to make medical decisions for themselves: I have reviewed the following product management consultant notes: I have reviewed the results of the following tests: Stool Cx. I have ordered the following tests: Trop, COVID/RSV/Flu I have discussed the care of this patient with the following independent historian: RAJNI. I have independently interpreted the following test below: I have discussed the management of this patient with the following physician: Evelia YORK. Objective - Vital Signs Vital signs: Vital Signs Temp 98.7 F 04/11/24 08:35 Pulse 57 L 04/11/24 08:35 Resp 17 04/11/24 08:35 BP 158/86 04/11/24 08:35 Pulse Ox 94 L 04/11/24 08:35 FiO2 Intake & Output 04/10/24 04/11/24 04/11/24 18:59 06:59 18:59 Intake Total 1979 540 Balance 1979 540 Intake: Intake, IV Titration 900 Amount Piperacillin-Tazobactam 3 200 .375 gm In Sodium Chloride 0.9% 100 ml @ 25 mls/hr IVPB Q8HR [facility] Rx# :[id number] Sodium Chloride 0.9% 1, 500 000 ml @ 50 mls/hr IV . Q20H [facility] Rx#:[id number] metroNIDAZOLE-NS PMX 500 200 mg In Saline 1 100ml.bag @ 100 mls/hr IVPB Q8H [facility] Rx#:[id number] Oral 1080 540 Other: Voiding Method Toilet Toilet # Voids 2 - Labs CBC & Chem 7: 04/10/24 08:43 04/10/24 08:43 Labs: Microbiology - Last 24 Hours (Table) 04/09/24 02:50 Stool Culture - Preliminary Stool Deya dubliniensis 04/08/24 12:20 Stool Culture - Final Stool 04/05/24 08:35 Blood Culture - Final Blood
[2024-04-11 12:54] LABS: Influenza A Not Detected (Not Detectd); Influenza B Not Detected (Not Detectd); RSV Not Detected (Not Detectd)
--- NOTE | 2024-04-11 15:51 | P.PN ---
Subjective Progress Note Date: 04/11/24 SURGICAL PROGRESS NOTE CHIEF COMPLAINT: Abdominal pain HISTORY OF PRESENT ILLNESS: Patient reports that she continues to not feel the best. She has had some diarrhea. She was able to tolerate food. Continues to have some abdominal pain. No further fevers noted. Afebrile. Due to her complaints of cough and headache with sore throat influenza RSV and COVID were checked and not detected. Stool culture did report Marnie Dubliniensis Patient seen and examined with Dr. Johnson who is covering for Dr. Peguero PHYSICAL EXAM: VITAL SIGNS: Reviewed. GENERAL: no acute distress. ABDOMEN: Soft. Nondistended. Mild diffuse abdominal discomfort with palpation. NEUROLOGIC: Alert and oriented. Cranial nerves II through XII grossly intact. ASSESSMENT: 1. Partial small bowel obstruction possibly on the basis of inflammatory bowel disease or infectious enterocolitis. Small bowel obstruction has resolved PLAN: -Discussed with medicine service. Agree with transitioning patient to oral anti biotics. Flagyl may be contributing to patient's nausea and not feeling well. They have discontinued Flagyl -Yeast that was found in stool cultures likely contaminant. No treatment needed. -Continue to monitor -Continue regular diet -Recommend outpatient MRI of abdomen -Continue antibiotics -Anticipate discharge possibly tomorrow Physician Rib Stiffener And Heel Dipper note has been reviewed by physician. Signing provider agrees with the documented findings, assessment, and plan of care. Objective - Vital Signs Vital signs: Vital Signs Temp 99.3 F 04/11/24 13:08 Pulse 96 04/11/24 14:47 Resp 17 04/11/24 13:08 BP 129/75 04/11/24 14:47 Pulse Ox 95 04/11/24 13:08 FiO2 Intake & Output 04/10/24 04/11/24 04/11/24 18:59 06:59 18:59 Intake Total 1979 540 Balance 1979 540 Intake: Intake, IV Titration 900 Amount Piperacillin-Tazobactam 3 200 .375 gm In Sodium Chloride 0.9% 100 ml @ 25 mls/hr IVPB Q8HR [facility] Rx# :[id number] Sodium Chloride 0.9% 1, 500 000 ml @ 50 mls/hr IV . Q20H [facility] Rx#:[id number] metroNIDAZOLE-NS PMX 500 200 mg In Saline 1 100ml.bag @ 100 mls/hr IVPB Q8H [facility] Rx#:[id number] Oral 1080 540 Other: Voiding Method Toilet Toilet Toilet # Voids 2 - Labs CBC & Chem 7: 04/10/24 08:43 04/10/24 08:43 Labs: Microbiology - Last 24 Hours (Table) 04/09/24 02:50 Stool Culture - Preliminary Stool Marnie dubliniensis 04/08/24 12:20 Stool Culture - Final Stool 04/05/24 08:35 Blood Culture - Final Blood
[2024-04-11] MEDS: AMOXIC-POT CLAV 875-125MG 1 EACH TAB PO SCH (20:22)
[2024-04-12 07:49] VITALS: BP 164/91; PULSE 55; RESP 16; TEMP 99.2
--- NOTE | 2024-04-12 12:46 | P.DS ---
Providers Date of admission: 04/05/24 08:24 Expected date of discharge: 04/12/24 Attending physician: Jesus Peguero Consults: 04/05/24 08:01 Consult Physician Urgent Consulting Provider: Killian Bell Consult Reason/Comments: Medical management Do you want consulting provider notified?: Yes Primary care physician: Keith Youssef MD Hospital Course: Discharge diagnosis 1. Partial small bowel obstruction possibly on the basis of inflammatory bowel disease or infectious enterocolitis. Small bowel obstruction has resolved Hospital course This is a 54-year-old female who presented with abdominal pain and nausea and vomiting x 2 days. Patient reports that she was having formed stools at home and having flatus. She denies any prior history of bowel obstruction. Surgical history includes a . She has never had colonoscopy before. CT scan abdomen pelvis completed reported findings highly suggestive of small bowel obstruction. Transition point not clearly seen, possibly left lower quadrant. Correlate for concurrent infectious or inflammatory colitis with moderate inflammation. Patient was managed conservatively. She had NG tube initially placed and was started on IV antibiotics. Patient also was scheduled for a small bowel follow-through series which was unable to be completed due to her not being able to tolerate the Gastrografin. Patient's symptoms have improved. She is having bowel movements. She is tolerating diet. She is afebrile. She has been up and ambulating. She will continue antibiotics after discharge for her colitis. Stool studies had only grown yeast which was likely contaminant. Patient followed by medical service they have cleared patient for discharge. Patient will follow-up with Dr. Alves in the office for outpatient abdominal MRI. Patient is stable for discharge. Please refer to chart for any further details. Physician Manager Infusion note has been reviewed by physician. Signing provider agrees with the documented findings, assessment, and plan of care. Patient Condition at Discharge: Stable Plan - Discharge Summary Discharge Rx Participant: No New Discharge Prescriptions: New Amoxic-Pot Clav 500-125 mg [Augmentin 500-125 mg] 1 tab PO Q12HR 5 Days #10 tab Continue Ondansetron Odt [Zofran ODT] 4 mg PO Q8HR PRN #10 tab PRN Reason: Nausea Ergocalciferol (Vitamin D2) [Drisdol (50,000 Iu)] 1,250 mcg PO Q7D Albuterol Sulfate [Albuterol Sulfate Hfa] 2 puff PO RT-Q4H PRN PRN Reason: Shortness Of Breath Cetirizine HCl [Zyrtec] 10 mg PO DAILY Discharge Medication List Ondansetron Odt [Zofran ODT] 4 mg PO Q8HR PRN #10 tab 04/04/24 [Rx] Albuterol Sulfate [Albuterol Sulfate Hfa] 2 puff PO RT-Q4H PRN 04/05/24 [History] Cetirizine HCl [Zyrtec] 10 mg PO DAILY 04/05/24 [History] Ergocalciferol (Vitamin D2) [Drisdol (50,000 Iu)] 1,250 mcg PO Q7D 04/05/24 [History] Amoxic-Pot Clav 500-125 mg [Augmentin 500-125 mg] 1 tab PO Q12HR 5 Days #10 tab 04/12/24 [Rx] Follow up Appointment(s)/Referral(s): Jesus Peguero MD [Medical Doctor] - 04/18/24 9:15 am Keith Youssef MD [Primary Care Provider] - 04/22/24 5:00 pm Patient Instructions/Handouts: Bowel Obstruction (DC), Colitis (ED) Discharge Disposition: HOME SELF-CARE
--- NOTE | 2024-04-12 16:20 | P.PN ---
Subjective Progress Note Date: 04/12/24 Patient was seen and examined. She reports improvement in her symptoms. General: non toxic, no distress, appears at stated age Derm: warm, dry Head: atraumatic, normocephalic, symmetric Eyes: EOMI, no lid lag, anicteric sclera Mouth: no lip lesion, mucus membranes moist Cardiovascular: S1S2 reg, no murmur Lungs: Clear to auscultation bilateral, no rhonchi, no rales , no accessory muscle use Ext: no gross muscle atrophy, no edema, no contractures Neuro: no focal neuro deficits Psych: Alert, oriented, appropriate affect Based on my assessment of this patient, this patient meets a high complexity l evel of care. Lightheadedness with chest pain Small bowel obstruction Infectious/inflammatory colitis Troponin < 0.012. Orthostats negative. Discussed with Evelia YORK, marnie likely contaminant, no treatment recommended, OK with Augmentin x 5 days on discharge. COVID, RSV, Flu neg. Patient is medically stable for discharge. CODE STATUS: FULL CODE DVT Prophylaxis: Heparin SQ GI Prophylaxis: Protonix IV Designated medical POA if patient is not able to make medical decisions for themselves: I have reviewed the following consultant nurse notes: Surgery. I have reviewed the results of the following tests: Trop, COVID/RSV/Flu I have ordered the following tests: I have discussed the care of this patient with the following independent historian: RAJNI. I have independently interpreted the following test below: I have discussed the management of this patient with the following physician: Evelia YORK. Objective - Vital Signs Vital signs: Vital Signs Temp 99.2 F 04/12/24 07:48 Pulse 55 L 04/12/24 07:48 Resp 16 04/12/24 07:48 BP 164/91 04/12/24 07:48 Pulse Ox 93 L 04/12/24 07:48 FiO2 Intake & Output 04/11/24 04/12/24 04/12/24 18:59 06:59 18:59 Intake Total 780 560 Balance 780 560 Intake: Oral 780 560 Other: Voiding Method Toilet Toilet Toilet # Voids 3 2 - Labs CBC & Chem 7: 04/10/24 08:43 04/10/24 08:43 Labs: Microbiology - Last 24 Hours (Table) 04/09/24 02:50 Stool Culture - Final Stool Marnie dubliniensis
== END 2024-04-12 10:40 | disposition home or self-care (01) | DRG 249 ==
LOC: EC 05:49 → 5NMEDONC 08:24
PROVIDERS: ADMIT Surgery; ATTEND Surgery
PROC: 0D9670Z Drainage of Stomach with Drainage Device, Via Natural or Artificial Opening (ICD-10-PCS; principal; 2024-04-05)
DX: K52.9 Noninfective gastroenteritis and colitis, unspecified (principal); K56.600 Partial intestinal obstruction, unspecified as to cause; K42.9 Umbilical hernia without obstruction or gangrene; K80.20 Calculus of gallbladder without cholecystitis without obstruction; N20.0 Calculus of kidney; Z79.899 Other long term (current) drug therapy; R12 Heartburn; J45.909 Unspecified asthma, uncomplicated; N39.0 Urinary tract infection, site not specified
CPT/HCPCS: 36415; 74018; 74019; 74177; 80048; 80053; 81001; 81025; 82150; 83605; 83690; 83735; 84484; 85025; 85652; 86140; 87040; 87045; 87046; 87086; 87328; 87329; 87636; 93005; 94640; 96361; 96372; 96374; 96375; 96376; 99285

== ENCOUNTER → 2024-05-21 | Outpatient (CLI) | payer OTHER ==
[2024-05-21 19:26] LABS: Basophils # (A) 0.03 X 10*3/uL (0.00-0.10); Basophils % (A) 1.1 %; Eosinophils # (A) 0.02 X 10*3/uL (0.04-0.35); Eosinophils % (A) 0.7 %; HGB 13.6 g/dL (12.0-15.0); Immature Grans, Automated 0 %; Lymphocytes # (A) 0.97 X 10*3/uL (0.90-5.00); Lymphocytes % (A) 34.6 %; MCH 28.3 pg (27.0-32.0); MCHC 32.4 g/dL (32.0-37.0); MCV 87.3 FL (80.0-97.0); Mean Platelet Volume 12.3 FL (9.5-12.2); Monocytes # (A) 0.45 X 10*3/uL (0.20-1.00); Monocytes % (A) 16.1 %; NRBC Per 100 WBC 0 X 10*3/uL (0.00-0.01); Neutrophils # (A) 1.33 X 10*3/uL (1.80-7.70); Neutrophils % (A) 47.5 %; Platelet Count 134 X 10*3/uL (140-440); RBC 4.81 X 10*6/uL (4.10-5.20); RDW 13.4 % (11.5-14.5)
[2024-05-21 19:41] LABS: ALT 772 U/L (8-44); AST 543 U/L (13-35); Albumin 4.9 g/dL (3.8-4.9); Albumin/Globulin Ratio 1.75 Ratio (1.60-3.17); Alkaline Phosphatase 86 U/L (41-126); BUN/Creat Ratio 16.12 Ratio (12.00-20.00); Blood Urea Nitrogen 12.9 mg/dL (9.0-27.0); Calcium 9.8 mg/dL (8.7-10.3); Carbon Dioxide 27.3 mmol/L (21.6-31.8); Chloride 102 mmol/L (96-109); Globulin 2.8 g/dL (1.6-3.3); Glucose 103 mg/dL (70-110); Potassium 4.2 mmol/L (3.5-5.5); Sodium 141 mmol/L (135-145); Total Bilirubin 0.8 mg/dL (0.3-1.2); Total Protein 7.7 g/dL (6.2-8.2)
[2024-05-21 19:48] LABS: Erythrocyte Sedimentation Rate 12 mm/Hr (0-30)
[2024-05-21 19:56] LABS: C Reactive Protein <0.30 mg/dL (0.00-0.80)
[2024-05-21 21:31] LABS: HIV 2 AB Non-Reactive (Non-Reactive); HIV AB P24 Non-Reactive (Non-Reactive); HIV P24 AG Non-Reactive (Non-Reactive)
[2024-05-21 23:10] LABS: Cryptosporidium Antigen Negative (Negative)
== END | disposition home or self-care (01) ==
LOC: LABWHC1 14:00
PROVIDERS: ATTEND Family Medicine
DX: K52.9 Noninfective gastroenteritis and colitis, unspecified (principal); B37.9 Candidiasis, unspecified
CPT/HCPCS: 36415; 80053; 83630; 85025; 85652; 86140; 87045; 87046; 87328; 87329; 87390